=== PATIENT | male | born 1955 | race Caucasian/White ===

== ENCOUNTER 2020-10-12 09:27 | Emergency (ER) | payer OTHER, SELFPAY ==
[2020-10-12 09:45] VITALS: BP 126/91; PULSE 68; RESP 16; TEMP 36.2; O2SAT 99; BMI 21.9
--- NOTE | 2020-10-12 10:06 | XR_ITS ---
EXAMINATION: XR RIBS, RIGHT CLINICAL INFORMATION: Right posterior rib cage pain. No known trauma. COMPARISON: Chest radiographs 05/21/2018. TECHNIQUE: Frontal view chest is performed along with 3 views of the right ribs for a total of 4 views. FINDINGS: There is no right rib fracture or rib destructive process. There are mild degenerative changes again seen acromioclavicular joint with mild inferior spurring. Dextrocurvature midthoracic spine is again noted with multilevel degenerative changes thoracic spine. The lungs are clear. There is no pneumothorax or pleural reaction. No airspace consolidation, groundglass opacity, or effusion. There is small chronic circumscribed subpleural granuloma mid left zone similar to prior radiographs 2018. There are bilateral nipple shadows on the frontal view. XR/XR ribs RT min 3V w CXR1V IMPRESSION: 1. No rib fracture or rib destructive process. 2. Multilevel degenerative changes thoracic spine. Degenerative changes right AC joint. 3. Lungs clear. Incidental small chronic granuloma left mid zone. 4. No pneumothorax or pleural reaction.
--- NOTE | 2020-10-12 10:24 | ED_ITS ---
HPI - Back Pain/Injury General Chief Complaint: Back Pain/Injury Stated Complaint: back pain Time Seen by Provider: 10/12/20 10:02 Source: patient Mode of arrival: ambulatory Limitations: no limitations History of Present Illness HPI Narrative: 64yoM c PMHx of degenerative joint disease, COPD and depression presenting to the ED with complaints of upper to mid right-sided back pain for the past week. Denies any injuries. Denies any additional complaints or concerns at this time. Related Data Previous Rx's Medication Instructions Recorded cyclobenzaprine 10 mg PO TID PRN #10 tab 10/12/20 naproxen 500 mg PO BID PRN #10 tab 10/12/20 oxycodone-acetaminophen [Percocet] 1 tab PO Q6H PRN #10 tab 10/12/20 Allergies Allergy/AdvReac Type Severity Reaction Status Date / Time No Known Allergies Allergy Unverified 08/11/20 15:03 Review of Systems Review of Systems: Constitutional : No trauma, No Weight loss, No Fever, No Chills, ENT/Mouth : No Hearing loss, No Ear Pain, No Nasal Congestion, No Sinus Pain, No Hoarseness, No sore throat, No Rhinorrhea, No Swallowing Difficulty Cardiovascular : No Chest Pain, No SOB Respiratory : No Cough, No Dyspnea Gastrointestinal : No Nausea, No Vomiting, No Diarrhea, No abdominal Pain, No Hematochezia, No Melena Genitourinary : No Dysuria, No Urinary Frequency, No Hematuria, No Urinary or Bowel Incontinence/retention Musculoskeletal : + Back pain, No neck pain, No joint stiffness, No joint swelling Skin : No Skin Lesions, No rash or signs of infection Neuro : No Weakness, No radiation, No Numbness, No Paresthesias, No headache, no loss of bowel or bladder incontinence, no saddle anesthesia Denies history of IV drug usage. Yes all other systems are reviewed and are negative PMFSH Past Medical History Attestation statement: The following information was validated with the patient. Medical History COPD (chronic obstructive pulmonary disease) Surgical History H/O left knee surgery S/P rotator cuff repair Status post left rotator cuff repair Social History Social History Advance Directives: No Advance Directives Information Provided: Yes Physical Exam Vital Signs: Vital Signs: Last Vital Signs Temp 97.2 F 10/12/20 09:45 Pulse 68 10/12/20 09:45 Resp 16 10/12/20 09:45 BP 126/91 H 10/12/20 09:45 Pulse Ox 99 10/12/20 09:45 Body Mass Index 21.9 vital signs have been reviewed as normal and appeared to be correct. Blood pressure normal. Heart rate normal. Respiration rate normal. Temperature normal. Oxygen saturation normal. Appearance: Alert. Oriented X3. No acute distress. Head: Normal external exam. Normocephalic. Atraumatic. Eyes: PERRLA. EOMI. Conjunctiva and sclera normal. Eyelids normal. ENT: EAC normal. TM's Normal. Pharynx normal. Uvula midline. Moist mucous membranes. Neck: Normal inspection. Neck supple. FROM. No adenopathy. Thyroid Normal. No meningeal signs. No neck mass noted. CVS: Normal heart rate and rhythm. Heart sound normal. No murmurs noted. Pulses normal throughout. Respiratory: No respiratory distress. Painless inspiration. Breath sounds normal. No wheezes/rales/rhonchi noted. Chest TTP of right posterior upper-mid rib cage. No accessory muscle usage noted or decreased air movement noted. No rashes/ lesion/induration/fluctuance or signs of infection noted. No crepitus noted. Back: No CVA tenderness. Full range of motion noted. No obvious deformities, or edema. No mid spinal or paraspinous musculature tenderness noted. Full ROM in back and lower extremities. Straight leg raise test negative on right; Straight leg raise test negative on left; Reflexes normal ankle and knee bilaterally; EHL motor strength normal bilaterally Skin: Skin warm and dry. Normal skin color. Normal skin turgor. No rashes/lesions/lacerations noted. Extremities: Extremities exhibit normal range of motion. Extremities nontender. Neuro: Oriented X 3. No motor deficit. No sensory deficit. Reflexes normal. Course Course Course Narrative: 10:10am - 64yoM c PMHx of degenerative joint disease, COPD and depression presenting to the ED with complaints of upper to mid right-sided back pain for the past week. - Will obtain x-ray of right ribcage and PA chest and re-evaluate. MDM - Back Pain/Injury Medical Records Attestation: I reviewed the patient's medical records. Imaging Data right ribs and pa chest: Attestation: I personally reviewed and interpreted this imaging study as follows: Radiologist's impression: FINDINGS: There is no right rib fracture or rib destructive process. There are mild degenerative changes again seen acromioclavicular joint with mild inferior spurring. Dextrocurvature midthoracic spine is again noted with multilevel degenerative changes thoracic spine. The lungs are clear. There is no pneumothorax or pleural reaction. No airspace consolidation, groundglass opacity, or effusion. There is small chronic circumscribed subpleural granuloma mid left zone similar to prior radiographs 2018. There are bilateral nipple shadows on the frontal view. XR/XR ribs RT min 3V w CXR1V IMPRESSION: 1. No rib fracture or rib destructive process. 2. Multilevel degenerative changes thoracic spine. Degenerative changes right AC joint. 3. Lungs clear. Incidental small chronic granuloma left mid zone. 4. No pneumothorax or pleural reaction. Discharge Plan Discharge Clinical Impression: DDD (degenerative disc disease), thoracic, AC (acromioclavicular) joint arthritis, Bone spur of acromioclavicular joint, Lung granuloma Patient Disposition: Home, Self-Care Instructions: Degenerative Disc Disease (ED) Prescriptions: New naproxen 500 mg tablet 500 mg PO BID PRN (Reason: pain) Qty: 10 RF: 0 oxycodone-acetaminophen [Percocet] 5-325 mg tablet 1 tab PO Q6H PRN (Reason: pain) Qty: 10 RF: 0 cyclobenzaprine 10 mg tablet 10 mg PO TID PRN (Reason: muscle spasm) Qty: 10 RF: 0 Referrals: Arben Giordano MD [Primary Care Provider] - 2 days Print Language: [place]
== END 2020-10-12 11:15 | disposition home or self-care (01) ==
PROVIDERS: Emergency Provider Emergency Medicine; PCP Internal Medicine
DX: M51.34 Other intervertebral disc degeneration, thoracic region (principal); J44.9 Chronic obstructive pulmonary disease, unspecified; R07.81 Pleurodynia; M54.5 Low back pain; F33.1 Major depressive disorder, recurrent, moderate; Z79.899 Other long term (current) drug therapy
CPT/HCPCS: 71101; 99283

== ENCOUNTER 2021-11-12 05:01 | Emergency (ER) | payer OTHER, SELFPAY ==
--- NOTE | ~2021-11-12 | CT_ITS ---
EXAMINATION: CT CERVICAL SPINE WITHOUT CONTRAST CLINICAL INFORMATION: Intermittent right arm weakness and numbness.. COMPARISON: None TECHNIQUE: 3 mm thin axial and reformatted 2 mm thin sagittal coronal images of cervical spine were obtained without contrast. This CT examination was performed using dose optimization techniques as appropriate, variously including the following: *Automated exposure control *Adjustment of mA and/or kV according to patient size (this includes techniques or standardized protocols for targeted exams where dose is matched to indication/reason for exam; i.e. extremities or head) *Use of iterative reconstruction technique DLP: 417 mGy-cm FINDINGS: There is normal cervical lordosis. The vertebral heights, alignment and disc heights are normal. The craniovertebral junction and C1-C2 alignment is normal. At C2-C3 disc levels there is mild left uncovertebral hypertrophic changes narrowing the left neural foramina. There is moderate left facet joint hypertrophy. Mild AP canal narrowing is noted. At C3-C4 disc level is mild posterior spondylosis with mild spinal spinal canal stenosis. There is moderate left facet joint hypertrophy. There is bilateral moderate narrowing of neural foramina. At C4-C5 disc level the spinal canal is capacious. The neural foramina are patent bilaterally. There is 7 mm sclerotic density right C5 transverse process likely a bone island. At C5-C6 disc level there is moderate left neural foraminal narrowing. The right neural foramina is widely patent. There is no visible acute fracture, dislocation or lytic process. There is moderate right facet joint hypertrophy. Mild narrowing of left neural foramina is seen from uncovertebral hypertrophic change. At C6-C7 disc level there is posterior spondylosis/bulge complex with mild AP canal stenosis. There is bilateral moderate narrowing of neural foramina from uncovertebral hypertrophic changes. The C7-T1 disc level appears unremarkable. No lytic or sclerotic process seen. There is moderate ventral spondylosis throughout cervical spine from C3-C4 through T1-T2 disc level. The prevertebral and paravertebral soft tissues are normal. The airway is widely patent. No abnormal neck mass or lymphadenopathy seen. CT/CT cervical spine wo con IMPRESSION: Multilevel degenerative spinal canal stenosis secondary to posterior spondylosis at C3-C4 and C6-C7 disc levels. Uncovertebral hypertrophic changes with narrowing the neural foramina at several disc levels as per above. No visible acute fracture or dislocation. There is moderate ventral spondylosis throughout cervical spine.
[2021-11-12 05:04] VITALS: BP 117/78; PULSE 62; RESP 20; TEMP 35.9; O2SAT 95; BMI 21.9
[2021-11-12 08:55] VITALS: BP 124/83; PULSE 62; RESP 19; TEMP 36.6; O2SAT 97; BMI 21.9
--- NOTE | 2021-11-12 09:25 | ED_ITS ---
HPI - General Adult General Chief complaint: General Medical Stated complaint: Arm numbness Time Seen by Provider: 11/12/21 09:09 Source: patient Mode of arrival: ambulatory History of Present Illness HPI narrative: 65-year-old male with past medical history of COPD, cigarette smoker, presenting to the ED complaining of intermittent right arm numbness/tingling x3 weeks. Admits symptoms positional worse when lying flat on back/on side, slightly improves when hold arm in flexed position. Reports mildly painful. Denies weakness, headache, lightheadedness/dizziness, trauma/fall, CP/SOB, neck/back pain. Denies taking anticoagulation Onset (ago): week(s) Related Data Previous Rx's Medication Instructions Recorded cyclobenzaprine 10 mg tablet 10 mg PO TID PRN #10 tab 10/12/20 naproxen 500 mg tablet 500 mg PO BID PRN #10 tab 10/12/20 oxycodone-acetaminophen 5 mg-325 1 tab PO Q6H PRN #10 tab 10/12/20 mg tablet (Percocet) acetaminophen 500 mg tablet 500 mg PO Q6H PRN #20 tab 11/12/21 (Tylenol Extra Strength) cyclobenzaprine 5 mg tablet 5 mg PO Q8H PRN 5 Days #14 tab 11/12/21 lidocaine 5 % topical patch 1 patch TOPICAL DAILY PRN #30 ea 11/12/21 (Lidoderm) MDD remove after 12 hours naproxen 500 mg tablet 500 mg PO BID PRN 10 Days #20 tab 11/12/21 Allergies Allergy/AdvReac Type Severity Reaction Status Date / Time No Known Allergies Allergy Unverified 11/12/21 05:11 Review of Systems Review of Systems: Constitutional: No Fever, No Chills ENT/Mouth: No Ear Pain, No Nasal Congestion, No sore throat, No Rhinorrhea, No Swallowing Difficulty Cardiovascular: No Chest Pain, No SOB Respiratory: No Cough, No Sputum, No Wheezing Gastrointestinal: No Nausea, No Vomiting, No Diarrhea, No Constipation, No Abdominal pain Genitourinary: No Dysuria, No Urinary Frequency, No Hematuria, No Urinary Incon tinence Musculoskeletal: No neck/back pain, No Myalgias, No Joint Swelling Skin: No Skin Lesions, No rash Neuro: No Weakness, + Numbness, + Paresthesias, no headache, no dizziness/lightheadedness Yes all other systems are reviewed and are negative Neurologic: Denies Abnormal speech present and Denies Sensory deficit (Neuro) [facility] Past Medical History Attestation statement: The following information was validated with the patient. Medical History COPD (chronic obstructive pulmonary disease) Surgical History H/O left knee surgery S/P rotator cuff repair Status post left rotator cuff repair Social History Social History Advance Directives: No Physical Exam Vital Signs: Vital Signs: Last Vital Signs Temp 98 F 11/12/21 08:55 Pulse 62 11/12/21 08:55 Resp 19 11/12/21 08:55 BP 124/83 11/12/21 08:55 Pulse Ox 97 11/12/21 08:55 BMI result Body Mass Index 21.9 Const: General: cooperative, healthy appearing, no acute distress, well developed, alert, awake and Physically active Orientation/consciousness: patient oriented x3 Limitations: no limitations HENMT: Head: Yes normal to inspection and Yes atraumatic Ears: hearing grossly normal bilaterally General nose exam: Normal external nose present Face and sinus: Yes normal facial exam Mouth: Normal oral and palatal mucosa present Throat: Yes posterior oropharynx normal Eyes: General: appearance normal, both eyes and all related structures Pupils: Equal, round and reactive pupils present EOM: EOMs intact bilaterally Neck: Other: No midline cervical spinous tenderness/step-off or deformity. No paraspinal tenderness. Neck: Yes normal visual inspection, Yes no meningeal signs, Yes trachea midline, Yes supple, No anterior neck swelling and No torticollis Lymphatic: no lymphadenopathy noted Resp: Effort & Inspection: normal respiratory effort and no respiratory distress Cardio: Rate: regular rate Heart sounds: S1 normal heart sound present and S2 normal heart sound present Peripheral pulses: radial pulses present and ulnar radial pulses present Skin: Rashes: no rashes Wounds: no wounds Neuro: General: patient oriented x3, gait normal, tone normal, moves all extremities, no meningeal signs, no focal motor deficits and CN's II-XI intact bilaterally Cranial nerves: Yes CN's II-XII intact bilaterally, Yes Equal, round and reactive pupils present and Yes Bilaterally intact EOM present Cognition (Neuro): normal cognition Speech: No Abnormal speech present Gait exam (Neuro): Normal gait present Motor exam (neuro): 5/5 motor strength present throughout and no tremor noted Sensory Exam: No Sensory deficit (Neuro) Extrem: General: Yes normal to inspection Course Course Course Narrative: CT cervical spine wo con IMPRESSION: Multilevel degenerative spinal canal stenosis secondary to posterior spondylosis at C3-C4 and C6-C7 disc levels. ? Uncovertebral hypertrophic changes with narrowing the neural foramina at several disc levels as per above. ? No visible acute fracture or dislocation. There is moderate ventral spondylosis throughout cervical spine. >> results discussed with patient treating worrisome signs and symptoms and strict return precautions and need to follow-up with Neurosurgery Medical Decision Making MDM Narrative Medical decision making narrative: 65-year-old male with past medical history of COPD, cigarette smoker, presenting to the ED complaining of intermittent right arm numbness/tingling x3 weeks. On exam vital signs stable, NAD/nontoxic, physical exam as above, no midline cervical spinous tenderness, no focal neuro deficits, no appreciable weakness, upper extremity pulses equal and intact, sensation intact to light touch. Concern for compression latrice ropathy/paresthesias vs inflammation. Lower concern for demyelinating process or vasculitic neuropathy as symptoms are intermittent. Plan: Cervical spine CT Medical Records Medical records reviewed: Yes I reviewed the patient's medical records. Lab Data Lab results reviewed: Yes I reviewed the patient's lab results. Discharge Plan Discharge Clinical Impression: Cervical stenosis of spinal canal Patient Disposition: Home, Self-Care Instructions: Cervical Spinal Stenosis (ED) Additional Instructions: Your CT shows multilevel degenerative spinal canal stenosis. You need to follow-up with a neurosurgeon, call to make an appointment Naproxen as anti-inflammatory medication, take with food. Flexeril is a muscle relaxer, take at night as it makes you drowsy, do not drive or drink alcohol whi le taking it In addition you may take Tylenol Rest If symptoms persist or worsen, you develop weakness, chest pain, shortness breath, headaches please return to the ED Prescriptions: New acetaminophen [Tylenol Extra Strength] 500 mg tablet 500 mg PO Q6H PRN (Reason: pain or fever) Qty: 20 RF: 0 lidocaine [Lidoderm] 5 % adhesive patch,medicated 1 patch topical DAILY MDD remove after 12 hours PRN (Reason: pain) Qty: 30 RF: 0 naproxen 500 mg tablet 500 mg PO BID PRN (Reason: pain) 10 Days Qty: 20 RF: 0 cyclobenzaprine 5 mg tablet 5 mg PO Q8H PRN (Reason: pain (scale score 7-10)) 5 Days Qty: 14 RF: 0 No Action naproxen 500 mg tablet 500 mg PO BID PRN (Reason: pain) Qty: 10 RF: 0 oxycodone-acetaminophen [Percocet] 5-325 mg tablet 1 tab PO Q6H PRN (Reason: pain) Qty: 10 RF: 0 cyclobenzaprine 10 mg tablet 10 mg PO TID PRN (Reason: muscle spasm) Qty: 10 RF: 0 Referrals: Jagruti Hernandez MD [Physician] - 5 days
== END 2021-11-12 11:28 | disposition home or self-care (01) ==
PROVIDERS: Emergency Provider Emergency Medicine; PCP Internal Medicine
DX: M48.02 Spinal stenosis, cervical region (principal); R20.0 Anesthesia of skin; F17.200 Nicotine dependence, unspecified, uncomplicated
CPT/HCPCS: 72125; 99283; 99284

== ENCOUNTER 2023-01-09 13:32 | Emergency (ER) | payer MEDICARE, MEDICAID, SELFPAY ==
--- NOTE | ~2023-01-09 | XR_ITS ---
EXAMINATION: XR SHOULDER, RIGHT CLINICAL INFORMATION: Pain with decreased range of motion COMPARISON: None TECHNIQUE: Three views of the right shoulder. FINDINGS: Some minimal degenerative changes have developed since 2014 with some mild sclerosis at the inferior glenoid. Some minimal osteophytes are present. The joint space does not appear narrowed. There is been progression of calcification supraspinatus tendon with a small amount currently present. No fractures or subluxations. XR/XR shoulder RT min 2V IMPRESSION: Interval development of mild degenerative changes in the right shoulder with progression of supraspinatus calcific tendinitis/tendinosis.
--- NOTE | 2023-01-09 13:55 | ED.EXTPRO ---
HPI - Extremity Problem General Chief complaint: Extremity Injury, Upper <Ni Menchaca CNP - Last Filed: 01/09/23 14:01> Stated complaint: r shoulder pain <Ni Menchaca CNP - Last Filed: 01/09/23 14:01> Time Seen by Provider: 01/09/23 14:11 <Ni Menchaca CNP - Last Filed: 01/09/23 14:01> Related Data Home medications: Previous Rx's Medication Instructions Recorded cyclobenzaprine 10 mg tablet 10 mg PO TID PRN muscle spasm #10 10/12/20 tabs naproxen 500 mg tablet 500 mg PO BID PRN pain #10 tabs 10/12/20 oxycodone-acetaminophen 5 mg-325 1 tab PO Q6H PRN pain #10 tabs 10/12/20 mg tablet (Percocet) acetaminophen 500 mg tablet 500 mg PO Q6H PRN pain or fever 11/12/21 (Tylenol Extra Strength) #20 tabs cyclobenzaprine 5 mg tablet 5 mg PO Q8H PRN pain (scale score 11/12/21 7-10) 5 days #14 tabs lidocaine 5 % topical patch 1 patch topical DAILY PRN pain #30 11/12/21 (Lidoderm) ea naproxen 500 mg tablet 500 mg PO BID PRN pain 10 days #20 11/12/21 tabs acetaminophen 500 mg capsule 1,000 mg PO Q8H PRN pain #30 caps 01/09/23 naproxen 500 mg tablet (Naprosyn) 500 mg PO BID PRN pain #20 tabs 01/09/23 oxycodone 5 mg tablet 5 mg PO Q6H PRN pain #20 tabs 01/09/23 <Ni Menchaca CNP - Last Filed: 01/09/23 14:01> Allergies/Adverse reactions: Allergies Allergy/AdvReac Type Severity Reaction Status Date / Time No Known Allergies Allergy Unverified 11/12/21 05:11 <Ni Menchaca CNP - Last Filed: 01/09/23 14:01> [facility] Past Medical History Medical History: Medical History COPD (chronic obstructive pulmonary disease) <Ni Menchaca MEDICAL REIMBURSEMENT SPECIALIST - Last Filed: 01/09/23 14:01> Surgical History: Surgical History H/O left knee surgery S/P rotator cuff repair Status post left rotator cuff repair <Ni MenchacaELLIE - Last Filed: 01/09/23 14:01> Social History Social History: Social History Advance Directives: No Advance Directives Information Provided: Yes <Ni MenchacaELLIE - Last Filed: 01/09/23 14:01> Physical Exam Vital Signs: Vital Signs: Last Vital Signs Temp 97.6 F 01/09/23 13:56 Pulse 97 01/09/23 13:56 Resp 18 01/09/23 13:56 BP 117/84 01/09/23 13:56 Pulse Ox 95 01/09/23 13:56 O2 Del Method 01/09/23 13:56 BMI result Body Mass Index 23.3 <iN MenchacaELLIE - Last Filed: 01/09/23 14:01> Vital Signs: Last Vital Signs Temp 97.6 F 01/09/23 13:56 Pulse 97 01/09/23 13:56 Resp 18 01/09/23 13:56 BP 117/84 01/09/23 13:56 Pulse Ox 95 01/09/23 13:56 O2 Del Method 01/09/23 13:56 BMI result Body Mass Index 23.3 <JAMILA Antoine - Last Filed: 01/09/23 15:29> Course Course Course Narrative: This is an RME: Additional HPI, ROS, PE not included below will be deferred to primary provider. Patient is a 67-year-old male who presents emergency department with right shoulder pain. Denies any prior history of right shoulder pain. Onset of pain was 2 days ago, described as severe, diffuse throughout the shoulder, states he is unable to lift his right arm. Denies any fall, precipitating injury. Denies numbness or tingling. Denies any weakness to the arm/hand. Advised associated neck pain with this. Took Tylenol at 0700 without any significant improvement. PE: Decreased AROM, limited external rotation, abduction. Neurovascularly intact distally. Concern for degenerative joint disease, possible rotator cuff injury Plan: Will obtain XR imaging. placed back in waiting room pending bed availability <Ni Menchaca CNP - Last Filed: 01/09/23 14:01> This is an RME: Additional HPI, ROS, PE not included below will be deferred to primary provider. Patient is a 67-year-old male who presents emergency department with right shoulder pain. Denies any prior history of right shoulder pain. Onset of pain was 2 days ago, described as severe, diffuse throughout the shoulder, states he is unable to lift his right arm. Denies any fall, precipitating injury. Denies numbness or tingling. Denies any weakness to the arm/hand. Advised associated neck pain with this. Took Tylenol at 0700 without any significant improvement. PE: Decreased AROM, limited external rotation, abduction. Neurovascularly intact distally. Concern for degenerative joint disease, possible rotator cuff injury Plan: Will obtain XR imaging. placed back in waiting room pending bed availability Patient with atraumatic right shoulder pain head and x-ray showing calcific tendinitis of supraspinatus as well as degenerative changes in the right shoulder There is no pain when the arm is held in a comfortable position of internal rotation, but there is pain only with when he moves from that position, there is no chest pain no shortness of breath Patient had pain with movement but he did have limited range of motion in the shoulder, it was not red it was not warm it was not swollen, septic arthritis very unlikely and patient is given analgesics and recommended to follow with orthopedist <JAMILA Antoine - Last Filed: 01/09/23 15:29> Discharge Plan Discharge Clinical Impression: Calcific tendinitis of right shoulder, Arthralgia of right shoulder region <Ni Menchaca CNP - Last Filed: 01/09/23 14:01> Patient Disposition: Home, Self-Care <Ni Menchaca CNP - Last Filed: 01/09/23 14:01> Additional Instructions: X-ray showed tendinitis and arthritis in the joint X-ray does not clearly show muscles and tendons and ligaments so if pain continues you may need MRI of the right shoulder Follow with orthopedist for further evaluation Return any time any worse condition or any concerns <Ni Menchaca CNP - Last Filed: 01/09/23 14:01> Prescriptions: New acetaminophen 500 mg capsule 1,000 mg PO Q8H PRN (Reason: pain) Qty: 30 0RF naproxen [Naprosyn] 500 mg tablet 500 mg PO BID PRN (Reason: pain) Qty: 20 0RF oxycodone 5 mg tablet 5 mg PO Q6H PRN (Reason: pain) Qty: 20 0RF Rx Instructions: Partial Fill upon patient request. No Action naproxen 500 mg tablet 500 mg PO BID PRN (Reason: pain) Qty: 10 0RF oxycodone-acetaminophen [Percocet] 5-325 mg tablet 1 tab PO Q6H PRN (Reason: pain) Qty: 10 0RF cyclobenzaprine 10 mg tablet 10 mg PO TID PRN (Reason: muscle spasm) Qty: 10 0RF acetaminophen [Tylenol Extra Strength] 500 mg tablet 500 mg PO Q6H PRN (Reason: pain or fever) Qty: 20 0RF lidocaine [Lidoderm] 5 % adhesive patch,medicated 1 patch topical DAILY MDD remove after 12 hours PRN (Reason: pain) Qty: 30 0RF Rx Instructions: leave on most painful area for up to 12 hrs naproxen 500 mg tablet 500 mg PO BID PRN (Reason: pain) 10 Days Qty: 20 0RF cyclobenzaprine 5 mg tablet 5 mg PO Q8H PRN (Reason: pain (scale score 7-10)) 5 Days Qty: 14 0RF <Ni Menchaca CNP - Last Filed: 01/09/23 14:01> Referrals: Manjit hPam MD [Physician] - (Right shoulder tendinitis and arthralgia) <Ni Menchaca CNP - Last Filed: 01/09/23 14:01>
[2023-01-09 13:56] VITALS: BP 117/84; PULSE 97; RESP 18; TEMP 36.4; O2SAT 95; BMI 23.3
== END 2023-01-09 16:28 | disposition home or self-care (01) ==
PROVIDERS: Emergency Provider Student in an Organized Health Care Education/Training Program; PCP Internal Medicine
DX: M75.31 Calcific tendinitis of right shoulder (principal); M25.511 Pain in right shoulder
CPT/HCPCS: 73030; 99282; 99283

== ENCOUNTER → 2023-02-15 08:44 | Outpatient (BNVA) | payer OTHER, MEDICAID, SELFPAY | PROVIDERS: PCP Internal Medicine; Visit Provider Physician Assistant | DX: M75.31 Calcific tendinitis of right shoulder (principal) | CPT/HCPCS: 99202 ==

== ENCOUNTER 2023-03-13 18:25 | Emergency (ER) | payer OTHER, SELFPAY ==
--- NOTE | ~2023-03-13 | XR_ITS ---
EXAMINATION: XR CHEST CLINICAL INFORMATION: Shortness of breath COMPARISON: 10/12/2020 TECHNIQUE: Frontal view of the chest was obtained. FINDINGS: Lungs are hypoexpanded. Otherwise, no significant abnormality is noted involving the heart, lungs, mediastinum, bony thorax or soft tissues. Again seen is a tiny left lung calcified granuloma laterally. XR/XR chest 1V IMPRESSION: No acute intrathoracic disease.
--- NOTE | 2023-03-13 18:26 | ED.SOB ---
HPI - SOB/Dyspnea General Chief Complaint: Dyspnea Stated Complaint: diff breathing Time Seen by Provider: 03/13/23 18:26 Source: patient Mode of arrival: EMS Limitations: no limitations History of Present Illness HPI Narrative: Patient history of COPD was having increased shortness of breath got worse when came to the car all of sudden started having shortness of breath no chest pain no fever no chills no cough Related Data Previous Rx's Medication Instructions Recorded cyclobenzaprine 10 mg tablet 10 mg PO TID PRN muscle spasm #10 10/12/20 tabs naproxen 500 mg tablet 500 mg PO BID PRN pain #10 tabs 10/12/20 oxycodone-acetaminophen 5 mg-325 1 tab PO Q6H PRN pain #10 tabs 10/12/20 mg tablet (Percocet) acetaminophen 500 mg tablet 500 mg PO Q6H PRN pain or fever 11/12/21 (Tylenol Extra Strength) #20 tabs cyclobenzaprine 5 mg tablet 5 mg PO Q8H PRN pain (scale score 11/12/21 7-10) 5 days #14 tabs lidocaine 5 % topical patch 1 patch topical DAILY PRN pain #30 11/12/21 (Lidoderm) ea naproxen 500 mg tablet 500 mg PO BID PRN pain 10 days #20 11/12/21 tabs acetaminophen 500 mg capsule 1,000 mg PO Q8H PRN pain #30 caps 01/09/23 naproxen 500 mg tablet (Naprosyn) 500 mg PO BID PRN pain #20 tabs 01/09/23 oxycodone 5 mg tablet 5 mg PO Q6H PRN pain #20 tabs 01/09/23 albuterol sulfate 90 mcg/actuation 2 puff inhalation Q4-6H PRN 03/13/23 aerosol inhaler (ProAir HFA) bronchospasm #8.5 grams prednisone 20 mg tablet 40 mg PO DAILY #10 tabs 03/13/23 Allergies Allergy/AdvReac Type Severity Reaction Status Date / Time No Known Allergies Allergy Verified 02/15/23 08:52 Review of Systems Review of Systems: Yes all other systems are reviewed and are negative PMFSH Past Medical History Medical History COPD (chronic obstructive pulmonary disease) Surgical History H/O left knee surgery S/P rotator cuff repair Status post left rotator cuff repair Social History Social History Alcohol intake: never Patient Tobacco Use Status: Never used Tobacco Smoked in Last 30 Days: No Use of substances other than those prescribed or required for medical reasons: No Advance Directives: No Advance Directives Information Provided: No Current occupational status: retired Current occupation: right hand dominant Physical Exam Vital Signs: Vital Signs: Last Vital Signs Temp 99.5 F 03/13/23 18:27 Pulse 108 H 03/13/23 20:54 Resp 20 03/13/23 20:54 BP 122/71 03/13/23 20:54 Pulse Ox 93 03/13/23 20:54 O2 Del Method Room Air 03/13/23 20:54 BMI result Body Mass Index 23.5 Appearance: Alert. Oriented X3. No acute distress. Eyes: PERRLA, No Nystagmus ENT: Pharynx normal. Oral Mucosa moist Neck: Normal inspection. Neck supple. CVS: Normal heart rate and rhythm. Pulses normal. Respiratory: No respiratory distress. Equal air entry bilateral, bilateral wheezing with occasional crackles equal air entry Abdomen: Soft and nontender. Bowel sounds are present, no mass palpable, no CVA tenderness Skin: Skin warm and dry. Normal skin color. Normal skin turgor. Extremities: No lower extremity edema. No calf tenderness Neuro: Oriented X 3. No motor deficit. Medications Administered Discontinued Medications Generic Name Dose Route Start Last Admin Trade Name Freq PRN Reason Stop Dose Admin Albuterol Sulfate 7.5 mg 03/13/23 18:35 03/13/23 18:43 Albuterol Sulfate (0.083%) 2.5 Mg/3 Ml Vial.Neb INHALE 03/13/23 18:36 7.5 mg ONCE ONE Administration Medical Decision Making Lab Data 03/13/23 19:00 03/13/23 19:00 Labs: Lab Results 03/13/23 03/13/23 03/13/23 Range/Units 18:50 18:50 19:00 WBC 13.6 H (4.8-10.8) X10*3/uL RBC 5.09 (4.60-5.80) X10*6/uL Hgb 14.5 (14.0-18.0) g/dl Hct 43.6 (42.0-52.0) % MCV 85.7 (80.0-98.0) fL MCH 28.5 (27.0-33.0) pg MCHC 33.3 (31.0-36.0) g/dl RDW 14.4 (11.0-16.0) % Plt Count 250 (160-400) X10*3/uL MPV 8.8 L (9.4-12.4) fL Immature Gran % (Auto) 0.3 (0.0-0.4) % Neut % (Auto) 71.7 (45-73) % Lymph % (Auto) 13.8 L (20-40) % [place] % (Auto) 4.3 (2-11) % Eos % (Auto) 9.4 H (0-4) % Baso % (Auto) 0.5 (0-2) % Lymph # (Auto) 1.9 (1.2-4.9) X10*3/uL [place] # (Auto) 0.6 (0.1-1.2) X10*3/uL Eos # (Auto) 1.3 H (0.0-0.4) X10*3/uL Baso # (Auto) 0.1 (0.0-0.2) X10*3/uL Abs Immat Gran (auto) 0.04 H (0.00-0.03) X10*3/uL Absolute Neuts (auto) 9.7 H (2.0-8.3) x10*3/uL Absolute Nucleated RBC 0.000 (0.0-0.012) X10*3/uL Nucleated RBC % (auto) 0.0 (0.0-0.2) /100WBC PT (10.0-13.1) SEC INR (0.9-1.1) Sodium (135-145) mmol/L Potassium (3.3-5.1) mmol/L Chloride (96-108) mmol/L Carbon Dioxide (22-29) mmol/L Anion Gap (12-20) BUN (9-16) mg/dL Creatinine (0.5-1.4) mg/dL Estim Creat Clear Calc Estimated GFR Random Glucose (60-115) mg/dL Lactic Acid 1.4 (0.5-2.0) mmol/L Calcium (8.4-10.2) mg/dL Total Bilirubin (0.0-1.0) mg/dL AST (5-37) U/L ALT (0-40) U/L Alkaline Phosphatase (39-117) U/L Troponin I High Sens < 2.7 (<3.5-35.0) ng/L Total Protein (6.5-8.0) g/dL Albumin (3.5-5.0) g/dL COVID-19 (AMILCAR) (Negative) COVID-19 Clin Com 03/13/23 03/13/23 03/13/23 Range/Units 19:00 19:00 19:01 WBC (4.8-10.8) X10*3/uL RBC (4.60-5.80) X10*6/uL Hgb (14.0-18.0) g/dl Hct (42.0-52.0) % MCV (80.0-98.0) fL MCH (27.0-33.0) pg MCHC (31.0-36.0) g/dl RDW (11.0-16.0) % Plt Count (160-400) X10*3/uL MPV (9.4-12.4) fL Immature Gran % (Auto) (0.0-0.4) % Neut % (Auto) (45-73) % Lymph % (Auto) (20-40) % [place] % (Auto) (2-11) % Eos % (Auto) (0-4) % Baso % (Auto) (0-2) % Lymph # (Auto) (1.2-4.9) X10*3/uL [place] # (Auto) (0.1-1.2) X10*3/uL Eos # (Auto) (0.0-0.4) X10*3/uL Baso # (Auto) (0.0-0.2) X10*3/uL Abs Immat Gran (auto) (0.00-0.03) X10*3/uL Absolute Neuts (auto) (2.0-8.3) x10*3/uL Absolute Nucleated RBC (0.0-0.012) X10*3/uL Nucleated RBC % (auto) (0.0-0.2) /100WBC PT 11.8 (10.0-13.1) SEC INR 1.0 (0.9-1.1) Sodium 143 (135-145) mmol/L Potassium 4.1 (3.3-5.1) mmol/L Chloride 109 H (96-108) mmol/L Carbon Dioxide 25 (22-29) mmol/L Anion Gap 13 (12-20) BUN 15 (9-16) mg/dL Creatinine 0.86 (0.5-1.4) mg/dL Estim Creat Clear Calc 78.9 Estimated GFR > 60 Random Glucose 109 (60-115) mg/dL Lactic Acid (0.5-2.0) mmol/L Calcium 9.7 (8.4-10.2) mg/dL Total Bilirubin 0.8 (0.0-1.0) mg/dL AST 23 (5-37) U/L ALT 22 (0-40) U/L Alkaline Phosphatase 68 (39-117) U/L Troponin I High Sens (<3.5-35.0) ng/L Total Protein 6.8 (6.5-8.0) g/dL Albumin 4.3 (3.5-5.0) g/dL COVID-19 (AMILCAR) Negative (Negative) COVID-19 Clin Com See Note Discharge Plan Discharge Clinical Impression: COPD (chronic obstructive pulmonary disease) Patient Disposition: Home, Self-Care Instructions: COPD (Chronic Obstructive Pulmonary Disease) (ED) Additional Instructions: Continue your inhalers Prednisone as prescribed Follow-up with the PCP if not better Prescriptions: New prednisone 20 mg tablet 40 mg PO DAILY Qty: 10 0RF albuterol sulfate [ProAir HFA] 90 mcg/actuation HFA aerosol inhaler 2 puff inhalation Q4-6H PRN (Reason: bronchospasm) Qty: 8.5 0RF No Action naproxen 500 mg tablet 500 mg PO BID PRN (Reason: pain) Qty: 10 0RF oxycodone-acetaminophen [Percocet] 5-325 mg tablet 1 tab PO Q6H PRN (Reason: pain) Qty: 10 0RF cyclobenzaprine 10 mg tablet 10 mg PO TID PRN (Reason: muscle spasm) Qty: 10 0RF acetaminophen [Tylenol Extra Strength] 500 mg tablet 500 mg PO Q6H PRN (Reason: pain or fever) Qty: 20 0RF lidocaine [Lidoderm] 5 % adhesive patch,medicated 1 patch topical DAILY MDD remove after 12 hours PRN (Reason: pain) Qty: 30 0RF Rx Instructions: leave on most painful area for up to 12 hrs naproxen 500 mg tablet 500 mg PO BID PRN (Reason: pain) 10 Days Qty: 20 0RF cyclobenzaprine 5 mg tablet 5 mg PO Q8H PRN (Reason: pain (scale score 7-10)) 5 Days Qty: 14 0RF acetaminophen 500 mg capsule 1,000 mg PO Q8H PRN (Reason: pain) Qty: 30 0RF naproxen [Naprosyn] 500 mg tablet 500 mg PO BID PRN (Reason: pain) Qty: 20 0RF oxycodone 5 mg tablet 5 mg PO Q6H PRN (Reason: pain) Qty: 20 0RF Rx Instructions: Partial Fill upon patient request.
[2023-03-13 18:27] VITALS: BP 153/99; BP 158/92; PULSE 102; PULSE 110; RESP 22; TEMP 37.5; O2SAT 93; O2SAT 98; BMI 23.5
--- NOTE | 2023-03-13 18:31 | ECG_ITS ---
Test Reason : sob Blood Pressure : / mmHG Vent. Rate : 108 BPM Atrial Rate : 108 BPM P-R Int : 158 ms QRS Dur : 130 ms QT Int : 354 ms P-R-T Axes : 069 085 057 degrees QTc Int : 474 ms Sinus tachycardia Right bundle branch block Abnormal ECG No previous ECGs available Referred By: Magno Richter Electronically Signed By:ASHLEY GLASS
[2023-03-13] MEDS: Albuterol Sulfate (0.083%) 2.5 MG/3 ML VIAL.NEB 7.5 MG INHALE (18:43)
[2023-03-13 18:44] VITALS: PULSE 105; RESP 28
[2023-03-13 19:03] LABS: MANUAL DIFF FLAG NO
[2023-03-13 19:07] LABS: Basophils Absolute Auto 0.1 X10*3/uL (0.0-0.2); Basophils Percent Auto 0.5 % (0-2); Eosinophils Absolute Auto 1.3 X10*3/uL (0.0-0.4); Eosinophils Percent Auto 9.4 % (0-4); Hematocrit 43.6 % (42.0-52.0); Hemoglobin 14.5 g/dl (14.0-18.0); Imm Gran Abs Auto 0.04 X10*3/uL (0.00-0.03); Imm Gran Pct Auto 0.3 % (0.0-0.4); Lymphocytes Absolute Auto 1.9 X10*3/uL (1.2-4.9); Lymphocytes Percent Auto 13.8 % (20-40); Mean Corpuscular HGB Conc 33.3 g/dl (31.0-36.0); Mean Corpuscular Hemoglobin 28.5 pg (27.0-33.0); Mean Corpuscular Volume 85.7 fL (80.0-98.0); Mean Platelet Volume 8.8 fL (9.4-12.4); Monocytes Absolute Auto 0.6 X10*3/uL (0.1-1.2); Monocytes Percent Auto 4.3 % (2-11); Neutrophils Absolute Auto 9.7 x10*3/uL (2.0-8.3); Neutrophils Percent Auto 71.7 % (45-73); Platelet Count 250 X10*3/uL (160-400); Red Blood Count 5.09 X10*6/uL (4.60-5.80); Red Cell Distribution Width 14.4 % (11.0-16.0); White Blood Count 13.6 X10*3/uL (4.8-10.8)
[2023-03-13 19:08] LABS: Lactic Acid 1.4 mmol/L (0.5-2.0)
[2023-03-13 19:10] LABS: Prothrombin Time 11.8 SEC (10.0-13.1)
[2023-03-13 19:19] LABS: Troponin-I High Sensitivity < 2.7 ng/L (<3.5-35.0)
[2023-03-13 19:20] LABS: Alanine Aminotransferase 22 U/L (0-40); Albumin Level 4.3 g/dL (3.5-5.0); Alkaline Phosphatase 68 U/L (39-117); Anion Gap 13 (12-20); Aspartate Amino Transferase 23 U/L (5-37); Bilirubin Total 0.8 mg/dL (0.0-1.0); Blood Urea Nitrogen 15 mg/dL (9-16); Calcium 9.7 mg/dL (8.4-10.2); Carbon Dioxide 25 mmol/L (22-29); Chloride 109 mmol/L (96-108); Creatinine Clr Calc Pharmacy 78.9; Estimated Glomerular Filt Rate > 60; Glucose Random 109 mg/dL (60-115); Potassium 4.1 mmol/L (3.3-5.1); Sodium 143 mmol/L (135-145); Total Protein 6.8 g/dL (6.5-8.0)
[2023-03-13 19:23] LABS: COVID-19 Test Negative (Negative); IDNOW Serial# 08D9AD1C
[2023-03-13 19:44] VITALS: BP 136/79; PULSE 118; RESP 18; O2SAT 92
[2023-03-13 20:54] VITALS: BP 122/71; PULSE 108; RESP 20; O2SAT 93
[2023-03-13 21:37] LABS: B Type Natriuretic Peptide < 10 pg/mL (<100)
== END 2023-03-13 21:20 | disposition home or self-care (01) ==
PROVIDERS: Emergency Provider Internal Medicine; PCP Internal Medicine
DX: J44.9 Chronic obstructive pulmonary disease, unspecified (principal); R06.02 Shortness of breath; R00.0 Tachycardia, unspecified; Z20.822 Contact with and (suspected) exposure to COVID-19; Z20.828 Contact with and (suspected) exposure to other viral communicable diseases; Z79.899 Other long term (current) drug therapy
CPT/HCPCS: 71045; 80053; 83605; 83880; 84484; 85025; 85610; 87040; 87635; 93005; 94640; 99284; 99285

== ENCOUNTER 2023-04-02 11:07 | Emergency (ER) | payer OTHER, SELFPAY ==
--- NOTE | ~2023-04-02 | CT_ITS ---
EXAMINATION: CT ANGIOGRAM OF THE CHEST WITH AND WITHOUT CONTRAST (CT PULMONARY ANGIOGRAM FOR PE) CLINICAL INFORMATION: Reason for Exam chest pain COMPARISON: Previous chest x-ray February 2023 TECHNIQUE: Prior to contrast administration, noncontrast localization images were obtained. Subsequently, multidetector volumetric imaging was performed from the thoracic inlet to below the diaphragms following the administration of 65 mL Omnipaque 350 intravenous contrast. No contrast reaction reported Sagittal, coronal, and MIP oblique sagittal reformatted images were obtained on the CT workstation, uploaded to PACS, and reviewed. This CT examination was performed using dose optimization techniques as appropriate, variously including the following: *Automated exposure control *Adjustment of mA and/or kV according to patient size (this includes techniques or standardized protocols for targeted exams where dose is matched to indication/reason for exam; i.e. extremities or head) *Use of iterative reconstruction technique Total exam dose-length product 234 mGy-cm FINDINGS: QUALITY OF STUDY/CONTRAST BOLUS: Satisfactory. PULMONARY ARTERIES: No pulmonary emboli. THORACIC AORTA: No aneurysm. LUNG: Emphysema. Spiculated nodule in the left upper lobe measuring 1.4 x 1.8 cm axial image 150 series 7. No surrounding increased groundglass attenuation.. 5 mm calcified left upper lobe nodule axial image 234 series 7.. 3 mm noncalcified left upper lobe nodule axial image 301 series 7. 3 mm calcified left upper lobe nodule axial image 247 series 7. 2 mm noncalcified left lower lobe nodule axial image 253 series 7. 2 mm calcified left lower lobe nodule axial image 282 series 7. PLEURA: No pleural effusion or pneumothorax. MEDIASTINUM: Normal heart size. No pericardial effusion. No enlarged hilar or mediastinal lymphadenopathy. No evidence of septal bowing or right heart strain. CORONARY ARTERY CALCIFICATION: None visualized on this study. CHEST WALL/AXILLA: No axillary or internal mammary lymphadenopathy. OSSEOUS STRUCTURES: No acute or suspicious osseous abnormality. Degenerative changes of the spine. UPPER ABDOMEN: Unremarkable. No reflux of contrast into the hepatic veins to suggest elevated right heart pressures. CT/CT angio chest PE protocol IMPRESSION: No evidence of pulmonary embolism. Emphysema. 1.4 x 1.8 cm slightly spiculated left upper lobe nodule. Infectious, inflammatory and neoplastic processes should be considered. Short-term follow-up chest CT appearance clinical suspicion of infection would be recommended. Otherwise PET/CT scan or tissue sampling should be considered. Small calcified and noncalcified left upper and left lower lobe nodules. VTE: negative
--- NOTE | ~2023-04-02 | US_ITS ---
EXAMINATION: US VENOUS ULTRASOUND WITH DOPPLER LOWER EXTREMITY, BILATERAL CLINICAL INFORMATION: Shortness of breath COMPARISON: None available. TECHNIQUE: Ultrasound of the deep veins is performed from the hip to the calf with compression sonography and color and pulse Doppler assessment. Spectral analysis with color-flow imaging is performed. FINDINGS: RIGHT: There is normal venous compression and respiratory variation and augmented flow. The visualized common femoral vein, superficial femoral vein, profunda femoral vein, popliteal vein, and the trifurcation region shows no evidence of deep venous thrombosis. There is no significant popliteal fossa cyst. LEFT: There is normal venous compression and respiratory variation and augmented flow. The visualized common femoral vein, superficial femoral vein, profunda femoral vein, popliteal vein, and the trifurcation region shows no evidence of deep venous thrombosis. There is no significant popliteal fossa cyst. US/US venous duplex LE BI IMPRESSION: No DVT demonstrated in the bilateral lower extremity.
--- NOTE | 2023-04-02 11:16 | ECG_ITS ---
Test Reason : CHEST PAIN Blood Pressure : / mmHG Vent. Rate : 070 BPM Atrial Rate : 070 BPM P-R Int : 164 ms QRS Dur : 128 ms QT Int : 406 ms P-R-T Axes : 065 081 050 degrees QTc Int : 438 ms Artifact in tracing Normal sinus rhythm Possible Left atrial enlargement Right bundle branch block Abnormal ECG When compared with ECG of 13-MAR-2023 18:34, Vent. rate has decreased BY 38 BPM Referred By: Generic ED Physician Electronically Signed By:ASHLEY GLASS
[2023-04-02 11:38] VITALS: PULSE 78; RESP 18; TEMP 36.6; O2SAT 97; BMI 23.2
--- NOTE | 2023-04-02 11:38 | ED.CHESTPAIN ---
HPI - Chest Pain General Chief Complaint: General Medical Stated Complaint: Chest pain/Diff breathing Time Seen by Provider: 04/02/23 17:46 Related Data Previous Rx's Medication Instructions Recorded cyclobenzaprine 10 mg tablet 10 mg PO TID PRN muscle spasm #10 10/12/20 tabs naproxen 500 mg tablet 500 mg PO BID PRN pain #10 tabs 10/12/20 oxycodone-acetaminophen 5 mg-325 1 tab PO Q6H PRN pain #10 tabs 10/12/20 mg tablet (Percocet) acetaminophen 500 mg tablet 500 mg PO Q6H PRN pain or fever 11/12/21 (Tylenol Extra Strength) #20 tabs cyclobenzaprine 5 mg tablet 5 mg PO Q8H PRN pain (scale score 11/12/21 7-10) 5 days #14 tabs lidocaine 5 % topical patch 1 patch topical DAILY PRN pain #30 11/12/21 (Lidoderm) ea naproxen 500 mg tablet 500 mg PO BID PRN pain 10 days #20 11/12/21 tabs acetaminophen 500 mg capsule 1,000 mg PO Q8H PRN pain #30 caps 01/09/23 naproxen 500 mg tablet (Naprosyn) 500 mg PO BID PRN pain #20 tabs 01/09/23 oxycodone 5 mg tablet 5 mg PO Q6H PRN pain #20 tabs 01/09/23 albuterol sulfate 90 mcg/actuation 2 puff inhalation Q4-6H PRN 03/13/23 aerosol inhaler (ProAir HFA) bronchospasm #8.5 grams prednisone 20 mg tablet 40 mg PO DAILY #10 tabs 03/13/23 amoxicillin 875 mg-potassium 1 tab PO BID #10 tabs 04/02/23 clavulanate 125 mg tablet azithromycin 250 mg tablet See Rx Instructions PO .COMPLEX #6 04/02/23 tabs prednisone 20 mg tablet 40 mg PO DAILY 5 days #10 tabs 04/02/23 Allergies Allergy/AdvReac Type Severity Reaction Status Date / Time No Known Allergies Allergy Verified 04/02/23 11:41 [facility] Past Medical History Medical History COPD (chronic obstructive pulmonary disease) Surgical History H/O left knee surgery S/P rotator cuff repair Status post left rotator cuff repair Social History Social History Alcohol intake: never Patient Tobacco Use Status: Never used Tobacco Advance Directives: No Advance Directives Information Provided: Yes Current occupational status: retired Current occupation: right hand dominant Physical Exam Vital Signs: Vital Signs: Last Vital Signs Temp 98.0 F 04/02/23 20:37 Pulse 83 04/02/23 20:37 Resp 22 H 04/02/23 20:37 BP 123/83 04/02/23 20:37 Pulse Ox 94 04/02/23 20:37 O2 Del Method Room Air 04/02/23 20:37 BMI result Body Mass Index 23.2 Course Course Course Narrative: RME: 67yo M w/PMHc COPD c/o congestion, rhinorrhea, worsening CP and SOB x weeks, admits pain worse with deep breathing. Finished course of antibiotics a few days ago Lungs with good air movement, mildly coarse, vital signs stable EKG, labs, CXR ordered Full HPI, ROS and PE to be performed by primary ED provider. Medications Administered Discontinued Medications Generic Name Dose Route Start Last Admin Trade Name Freq PRN Reason Stop Dose Admin Iohexol 100 ml 04/02/23 21:12 04/02/23 21:13 Iohexol 350 Mg/Ml 100 Ml Infus..Btl IV 04/02/23 21:13 65 ml ONCE ONE Administration Medical Decision Making Lab Data 04/02/23 12:20 04/02/23 12:20 Labs: Lab Results 04/02/23 04/02/23 04/02/23 Range/Units 12:18 12:18 12:20 WBC 9.5 (4.8-10.8) X10*3/uL RBC 5.09 (4.60-5.80) X10*6/uL Hgb 14.2 (14.0-18.0) g/dl Hct 44.7 (42.0-52.0) % MCV 87.8 (80.0-98.0) fL MCH 27.9 (27.0-33.0) pg MCHC 31.8 (31.0-36.0) g/dl RDW 15.4 (11.0-16.0) % Plt Count 251 (160-400) X10*3/uL MPV 9.3 L (9.4-12.4) fL Immature Gran % (Auto) 0.1 (0.0-0.4) % Neut % (Auto) 63.2 (45-73) % Lymph % (Auto) 16.8 L (20-40) % [place] % (Auto) 7.8 (2-11) % Eos % (Auto) 11.3 H (0-4) % Baso % (Auto) 0.8 (0-2) % Lymph # (Auto) 1.6 (1.2-4.9) X10*3/uL [place] # (Auto) 0.7 (0.1-1.2) X10*3/uL Eos # (Auto) 1.1 H (0.0-0.4) X10*3/uL Baso # (Auto) 0.1 (0.0-0.2) X10*3/uL Abs Immat Gran (auto) 0.01 (0.00-0.03) X10*3/uL Absolute Neuts (auto) 6.0 (2.0-8.3) x10*3/uL Absolute Nucleated RBC 0.000 (0.0-0.012) X10*3/uL Nucleated RBC % (auto) 0.0 (0.0-0.2) /100WBC PT (10.0-13.1) SEC INR (0.9-1.1) Sodium (135-145) mmol/L Potassium (3.3-5.1) mmol/L Chloride (96-108) mmol/L Carbon Dioxide (22-29) mmol/L Anion Gap (12-20) BUN (9-16) mg/dL Creatinine (0.5-1.4) mg/dL Estim Creat Clear Calc Estimated GFR Random Glucose (60-115) mg/dL Calcium (8.4-10.2) mg/dL Total Bilirubin (0.0-1.0) mg/dL Direct Bilirubin (0.0-0.5) mg/dL AST (5-37) U/L ALT (0-40) U/L Alkaline Phosphatase (39-117) U/L Troponin I High Sens (<3.5-35.0) ng/L B-Natriuretic Peptide (<100) pg/mL Total Protein (6.5-8.0) g/dL Albumin (3.5-5.0) g/dL COVID-19 (AMILCAR) Negative (Negative) COVID-19 Clin Com See Note Influenza Type A (RUY) Negative (Negative) Influenza Type B (RUY) Negative (Negative) Influenza A & B Note See Note 04/02/23 04/02/23 04/02/23 Range/Units 12:20 12:20 12:20 WBC (4.8-10.8) X10*3/uL RBC (4.60-5.80) X10*6/uL Hgb (14.0-18.0) g/dl Hct (42.0-52.0) % MCV (80.0-98.0) fL MCH (27.0-33.0) pg MCHC (31.0-36.0) g/dl RDW (11.0-16.0) % Plt Count (160-400) X10*3/uL MPV (9.4-12.4) fL Immature Gran % (Auto) (0.0-0.4) % Neut % (Auto) (45-73) % Lymph % (Auto) (20-40) % [place] % (Auto) (2-11) % Eos % (Auto) (0-4) % Baso % (Auto) (0-2) % Lymph # (Auto) (1.2-4.9) X10*3/uL [place] # (Auto) (0.1-1.2) X10*3/uL Eos # (Auto) (0.0-0.4) X10*3/uL Baso # (Auto) (0.0-0.2) X10*3/uL Abs Immat Gran (auto) (0.00-0.03) X10*3/uL Absolute Neuts (auto) (2.0-8.3) x10*3/uL Absolute Nucleated RBC (0.0-0.012) X10*3/uL Nucleated RBC % (auto) (0.0-0.2) /100WBC PT 11.3 (10.0-13.1) SEC INR 1.0 (0.9-1.1) Sodium 140 (135-145) mmol/L Potassium 4.3 (3.3-5.1) mmol/L Chloride 107 (96-108) mmol/L Carbon Dioxide 26 (22-29) mmol/L Anion Gap 11 L (12-20) BUN 16 (9-16) mg/dL Creatinine 0.88 (0.5-1.4) mg/dL Estim Creat Clear Calc 77.2 Estimated GFR > 60 Random Glucose 77 (60-115) mg/dL Calcium 9.1 D (8.4-10.2) mg/dL Total Bilirubin 1.1 H (0.0-1.0) mg/dL Direct Bilirubin 0.3 (0.0-0.5) mg/dL AST 29 (5-37) U/L ALT 29 (0-40) U/L Alkaline Phosphatase 73 (39-117) U/L Troponin I High Sens < 2.7 (<3.5-35.0) ng/L B-Natriuretic Peptide (<100) pg/mL Total Protein 6.5 (6.5-8.0) g/dL Albumin 4.0 (3.5-5.0) g/dL COVID-19 (AMILCAR) (Negative) COVID-19 Clin Com Influenza Type A (RUY) (Negative) Influenza Type B (RUY) (Negative) Influenza A & B Note 04/02/23 04/02/23 Range/Units 12:20 16:42 WBC (4.8-10.8) X10*3/uL RBC (4.60-5.80) X10*6/uL Hgb (14.0-18.0) g/dl Hct (42.0-52.0) % MCV (80.0-98.0) fL MCH (27.0-33.0) pg MCHC (31.0-36.0) g/dl RDW (11.0-16.0) % Plt Count (160-400) X10*3/uL MPV (9.4-12.4) fL Immature Gran % (Auto) (0.0-0.4) % Neut % (Auto) (45-73) % Lymph % (Auto) (20-40) % [place] % (Auto) (2-11) % Eos % (Auto) (0-4) % Baso % (Auto) (0-2) % Lymph # (Auto) (1.2-4.9) X10*3/uL [place] # (Auto) (0.1-1.2) X10*3/uL Eos # (Auto) (0.0-0.4) X10*3/uL Baso # (Auto) (0.0-0.2) X10*3/uL Abs Immat Gran (auto) (0.00-0.03) X10*3/uL Absolute Neuts (auto) (2.0-8.3) x10*3/uL Absolute Nucleated RBC (0.0-0.012) X10*3/uL Nucleated RBC % (auto) (0.0-0.2) /100WBC PT (10.0-13.1) SEC INR (0.9-1.1) Sodium (135-145) mmol/L Potassium (3.3-5.1) mmol/L Chloride (96-108) mmol/L Carbon Dioxide (22-29) mmol/L Anion Gap (12-20) BUN (9-16) mg/dL Creatinine (0.5-1.4) mg/dL Estim Creat Clear Calc Estimated GFR Random Glucose (60-115) mg/dL Calcium (8.4-10.2) mg/dL Total Bilirubin (0.0-1.0) mg/dL Direct Bilirubin (0.0-0.5) mg/dL AST (5-37) U/L ALT (0-40) U/L Alkaline Phosphatase (39-117) U/L Troponin I High Sens < 2.7 (<3.5-35.0) ng/L B-Natriuretic Peptide < 10 (<100) pg/mL Total Protein (6.5-8.0) g/dL Albumin (3.5-5.0) g/dL COVID-19 (AMILCAR) (Negative) COVID-19 Clin Com Influenza Type A (RUY) (Negative) Influenza Type B (RUY) (Negative) Influenza A & B Note Discharge Plan Discharge Clinical Impression: Upper respiratory infection, acute, COPD with acute exacerbation, Incidental lung nodule Patient Disposition: Home, Self-Care Instructions: Upper Respiratory Infection (ED), COPD (Chronic Obstructive Pulmonary Disease) (ED) Additional Instructions: Please take prescribed antibiotics as directed. Complete the full course. Please drink plenty of fluids and get plenty of rest. Your chest CT revealed a spiculated left upper lobe nodule. It is unclear whether not this is an infectious nodule or something more serious such as cancer. It is crucial that you follow-up with your primary care physician and your workday manager regarding this finding. If any new or worsening symptoms occur please return for re-evaluation. Prescriptions: New prednisone 20 mg tablet 40 mg PO DAILY 5 Days Qty: 10 0RF amoxicillin-pot clavulanate 875-125 mg tablet 1 tab PO BID Qty: 10 0RF azithromycin 250 mg tablet See Rx Instructions PO .COMPLEX Qty: 6 0RF Rx Instructions: For 250 mg dose pack: take 500 mg today (day 1), then 250 mg for 4 days (days 2-5) No Action naproxen 500 mg tablet 500 mg PO BID PRN (Reason: pain) Qty: 10 0RF oxycodone-acetaminophen [Percocet] 5-325 mg tablet 1 tab PO Q6H PRN (Reason: pain) Qty: 10 0RF cyclobenzaprine 10 mg tablet 10 mg PO TID PRN (Reason: muscle spasm) Qty: 10 0RF acetaminophen [Tylenol Extra Strength] 500 mg tablet 500 mg PO Q6H PRN (Reason: pain or fever) Qty: 20 0RF lidocaine [Lidoderm] 5 % adhesive patch,medicated 1 patch topical DAILY MDD remove after 12 hours PRN (Reason: pain) Qty: 30 0RF Rx Instructions: leave on most painful area for up to 12 hrs naproxen 500 mg tablet 500 mg PO BID PRN (Reason: pain) 10 Days Qty: 20 0RF cyclobenzaprine 5 mg tablet 5 mg PO Q8H PRN (Reason: pain (scale score 7-10)) 5 Days Qty: 14 0RF acetaminophen 500 mg capsule 1,000 mg PO Q8H PRN (Reason: pain) Qty: 30 0RF naproxen [Naprosyn] 500 mg tablet 500 mg PO BID PRN (Reason: pain) Qty: 20 0RF oxycodone 5 mg tablet 5 mg PO Q6H PRN (Reason: pain) Qty: 20 0RF Rx Instructions: Partial Fill upon patient request. prednisone 20 mg tablet 40 mg PO DAILY Qty: 10 0RF albuterol sulfate [ProAir HFA] 90 mcg/actuation HFA aerosol inhaler 2 puff inhalation Q4-6H PRN (Reason: bronchospasm) Qty: 8.5 0RF Interventions: ED Discharge Assessment Last Done: 04/02/23 23:15 Discharge Date/Time: 04/02/23 23:16
[2023-04-02 12:32] LABS: MANUAL DIFF FLAG NO
[2023-04-02 12:39] LABS: Basophils Absolute Auto 0.1 X10*3/uL (0.0-0.2); Basophils Percent Auto 0.8 % (0-2); Eosinophils Absolute Auto 1.1 X10*3/uL (0.0-0.4); Eosinophils Percent Auto 11.3 % (0-4); Hematocrit 44.7 % (42.0-52.0); Hemoglobin 14.2 g/dl (14.0-18.0); Imm Gran Abs Auto 0.01 X10*3/uL (0.00-0.03); Imm Gran Pct Auto 0.1 % (0.0-0.4); Lymphocytes Absolute Auto 1.6 X10*3/uL (1.2-4.9); Lymphocytes Percent Auto 16.8 % (20-40); Mean Corpuscular HGB Conc 31.8 g/dl (31.0-36.0); Mean Corpuscular Hemoglobin 27.9 pg (27.0-33.0); Mean Corpuscular Volume 87.8 fL (80.0-98.0); Mean Platelet Volume 9.3 fL (9.4-12.4); Monocytes Absolute Auto 0.7 X10*3/uL (0.1-1.2); Monocytes Percent Auto 7.8 % (2-11); Neutrophils Percent Auto 63.2 % (45-73); Platelet Count 251 X10*3/uL (160-400); Red Blood Count 5.09 X10*6/uL (4.60-5.80); Red Cell Distribution Width 15.4 % (11.0-16.0); White Blood Count 9.5 X10*3/uL (4.8-10.8)
[2023-04-02 12:41] LABS: Prothrombin Time 11.3 SEC (10.0-13.1)
[2023-04-02 12:53] LABS: Alanine Aminotransferase 29 U/L (0-40); Alkaline Phosphatase 73 U/L (39-117); Anion Gap 11 (12-20); Aspartate Amino Transferase 29 U/L (5-37); Bilirubin Direct 0.3 mg/dL (0.0-0.5); Bilirubin Total 1.1 mg/dL (0.0-1.0); Blood Urea Nitrogen 16 mg/dL (9-16); Calcium 9.1 mg/dL (8.4-10.2); Carbon Dioxide 26 mmol/L (22-29); Chloride 107 mmol/L (96-108); Creatinine Clr Calc Pharmacy 77.2; Estimated Glomerular Filt Rate > 60; Glucose Random 77 mg/dL (60-115); Potassium 4.3 mmol/L (3.3-5.1); Sodium 140 mmol/L (135-145); Total Protein 6.5 g/dL (6.5-8.0)
[2023-04-02 12:55] LABS: B Type Natriuretic Peptide < 10 pg/mL (<100)
[2023-04-02 12:58] LABS: Troponin-I High Sensitivity < 2.7 ng/L (<3.5-35.0)
[2023-04-02 13:01] LABS: COVID-19 Test Negative (Negative); IDNOW Serial# BCCEAD1C
[2023-04-02 13:02] LABS: IDNOW Serial# 9DB6401D; Influenza A Negative (Negative); Influenza B2 Negative (Negative)
--- NOTE | 2023-04-02 13:39 | ECG_ITS ---
Test Reason : chest pain Blood Pressure : / mmHG Vent. Rate : 075 BPM Atrial Rate : 075 BPM P-R Int : 158 ms QRS Dur : 128 ms QT Int : 408 ms P-R-T Axes : 064 086 051 degrees QTc Int : 455 ms Normal sinus rhythm Possible Left atrial enlargement Right bundle branch block Abnormal ECG When compared with ECG of 02-APR-2023 11:53, No significant change was found Referred By: Lexy Benitez Electronically Signed By:ASHLEY GLASS
[2023-04-02 17:16] LABS: Troponin-I High Sensitivity < 2.7 ng/L (<3.5-35.0)
--- NOTE | 2023-04-02 18:00 | ED_ITS ---
HPI - General Adult General Chief complaint: General Medical Stated complaint: Chest pain/Diff breathing Time Seen by Provider: 04/02/23 17:46 Source: patient and RN notes reviewed Mode of arrival: ambulatory Limitations: no limitations History of Present Illness HPI narrative: This is a 67-year-old male, with a past medical history of COPD, who presents emergency department with complaints of shortness of breath, congestion, and right-sided pleuritic chest pain which has been ongoing for the last month. Patient reports that he was seen here in the emergency department for these same symptoms and was given a course of steroids and albuterol unsure if this provided him with any relief. He then followed up with a linux security administrator who gave him a prescription for an antibiotic which he completed 2 days ago however his symptoms did not resolve. Does admit that some of his symptoms improved while being on the antibiotic. He admits to having 1 episode of drenching night sweats several nights ago. Denies any fevers or chills. No nasal congestion or rhinorrhea. No ear pain, sore throat, chest pain at rest, palpitations, abdominal pain, nausea, vomiting, diarrhea. Denies lower extremity swelling, denies calf tenderness. He recently traveled from [place]. Former smoker - quit smoking cigarettes 10 months ago, 50 pack year history. No hx of blood clots, cancer hx or family medical history of blood clots in the past. No other complaints or concerns at this time. MD complaint: SOB, congestion, right sided pleuritic CP Onset (ago): month(s) Quality: aching and sharp Pain Consistency: intermittent Relieving factors: none Exacerbating factors: none Associated symptoms: chest pain and fever/chills Treatments prior to arrival: none Related Data Previous Rx's Medication Instructions Recorded cyclobenzaprine 10 mg tablet 10 mg PO TID PRN muscle spasm #10 10/12/20 tabs naproxen 500 mg tablet 500 mg PO BID PRN pain #10 tabs 10/12/20 oxycodone-acetaminophen 5 mg-325 1 tab PO Q6H PRN pain #10 tabs 10/12/20 mg tablet (Percocet) acetaminophen 500 mg tablet 500 mg PO Q6H PRN pain or fever 11/12/21 (Tylenol Extra Strength) #20 tabs cyclobenzaprine 5 mg tablet 5 mg PO Q8H PRN pain (scale score 11/12/21 7-10) 5 days #14 tabs lidocaine 5 % topical patch 1 patch topical DAILY PRN pain #30 11/12/21 (Lidoderm) ea naproxen 500 mg tablet 500 mg PO BID PRN pain 10 days #20 11/12/21 tabs acetaminophen 500 mg capsule 1,000 mg PO Q8H PRN pain #30 caps 01/09/23 naproxen 500 mg tablet (Naprosyn) 500 mg PO BID PRN pain #20 tabs 01/09/23 oxycodone 5 mg tablet 5 mg PO Q6H PRN pain #20 tabs 01/09/23 albuterol sulfate 90 mcg/actuation 2 puff inhalation Q4-6H PRN 03/13/23 aerosol inhaler (ProAir HFA) bronchospasm #8.5 grams prednisone 20 mg tablet 40 mg PO DAILY #10 tabs 03/13/23 amoxicillin 875 mg-potassium 1 tab PO BID #10 tabs 04/02/23 clavulanate 125 mg tablet azithromycin 250 mg tablet See Rx Instructions PO .COMPLEX #6 04/02/23 tabs prednisone 20 mg tablet 40 mg PO DAILY 5 days #10 tabs 04/02/23 Allergies Allergy/AdvReac Type Severity Reaction Status Date / Time No Known Allergies Allergy Verified 04/02/23 11:41 Review of Systems Review of Systems: Constitutional: No Weight loss, No Fever, No Chills, No Night Sweats, No Fatigue, No Malaise ENT/Mouth: No Hearing loss, No Ear Pain, No Nasal Congestion, No Sinus Pain, No Hoarseness, No sore throat, No Rhinorrhea, No Swallowing Difficulty Eyes: No Eye Pain, No Swelling, No Redness, No Foreign Body, No Discharge, No Vision Changes Cardiovascular: +Chest Pain, No SOB, + Dyspnea on Exertion, No Orthopnea, No Edema, No Palpitations Respiratory: No Cough, No Sputum, No Wheezing, No Smoke Exposure, + Dyspnea Gastrointestinal: No Nausea, No Vomiting, No Diarrhea, No Constipation, No Abdominal pain, No Hematochezia, No Melena Genitourinary: No irregular bleeding, No Dysuria, No Urinary Frequency, No Hematuria, No Urinary Incontinence/retention, No Urgency, No Flank Pain, No Urinary Flow Changes, No Hesitancy Musculoskeletal: No joint pain, No Myalgias, No Joint Swelling Skin: No Skin Lesions, No rash Neuro: No Weakness, No Numbness, No Paresthesias, No Loss of Consciousness, No Dizziness, No Headache Psych: No Anxiety/Panic, No Depression, No SI/HI/AH/VH, No Social Issues, Heme/Lymph: No Bruising, No Bleeding,No Lymphadenopathy Endocrine: No Polyuria, No Polydipsia, No Temperature Intolerance Yes all other systems are reviewed and are negative Constitutional: Constitutional: Reports as per [facility] Past Medical History Medical History COPD (chronic obstructive pulmonary disease) Surgical History H/O left knee surgery S/P rotator cuff repair Status post left rotator cuff repair Social History Social History Alcohol intake: never Patient Tobacco Use Status: Never used Tobacco Advance Directives: No Advance Directives Information Provided: Yes Current occupational status: retired Current occupation: right hand dominant Physical Exam ED Vital Signs: Vital Signs - 24 hr 04/02/23 11:38 04/02/23 18:25 04/02/23 19:10 Temperature 98 F 98.2 F 97.7 F Pulse Rate 78 84 88 Respiratory Rate 18 18 23 H Blood Pressure 124/82 122/80 Pulse Oximetry 97 97 95 Oxygen Delivery Method Room Air Room Air Room Air 04/02/23 20:37 Temperature 98.0 F Pulse Rate 83 Respiratory Rate 22 H Blood Pressure 123/83 Pulse Oximetry 94 Oxygen Delivery Method Room Air BMI result Body Mass Index 23.2 Const General: cooperative, comfortable and no acute distress Orientation/consciousness: patient oriented x3 Limitations: no limitations HENMT Head: Yes normal to inspection, Yes normocephalic and Yes atraumatic Ears: hearing grossly normal bilaterally General nose exam: Normal external nose present Face and sinus: Yes normal facial exam Mouth: Normal oral and palatal mucosa present, oropharynx normal and moist mucous membranes Throat: Yes posterior oropharynx normal Eyes General: appearance normal, both eyes and all related structures Eyelids: Yes eyelids normal Conjunctivae: conjunctivae normal Sclerae: sclerae normal Pupils: Equal, round and reactive pupils present EOM: EOMs intact bilaterally Neck Neck: Yes normal visual inspection, Yes full ROM and Yes no lymphadenopathy Lymphatic: no lymphadenopathy noted Chest Chest palpation & inspection: normal inspection of the chest and normal palpation of entire chest wall Resp Other: Faint crackles to the left lower base, faint expiratory wheeze noted throughout all lung cross. Effort & Inspection: normal respiratory effort and able to speak in complete sentences Cardio Rate: regular rate Rhythm: regular rhythm Heart sounds: S1 normal heart sound present and S2 normal heart sound present GI Inspection: Yes normal to inspection Skin General skin exam: no rashes or lesions noted Trauma: no lacerations or abrasions Wounds: no wounds Neuro General: patient oriented x3 and moves all extremities Cranial nerves: Yes Equal, round and reactive pupils present Extrem General: Yes normal to inspection, Yes capillary refill normal, Yes no pedal edema and Yes no calf tenderness Right upper extremity: normal to inspection Left upper extremity: normal to inspection Right lower extremity: normal to inspection Left lower extremity: normal to inspection Course Reevaluation(s) Reevaluation #1: Ultrasound negative for DVT. CT scan performed awaiting radiology report. Patient was re-evaluated and found to be asleep in stretcher. Pt remains stable. Time: 22:19 Reevaluation #2: CTA chest returns revealing emphysema, no evidence of pulmonary embolism there is a slightly spiculated left. Infectious, inflammatory, and neoplastic processes should be considered. Short-term follow-up chest CT appearance clinical suspicion of infection will be recommended. Otherwise PET/CT scan or tissue sampling should be considered. Small calcified and noncalcified left upper and left lower lobe nodules. I will with the patient in depth, discussing that this could be a presentation of a COPD exacerbation ordered start of a pneumonia however given smoking history and recurrent symptoms malignancy such as cancer cannot be excluded. I urged the importance of following up with his primary care physician and linux security administrator regarding these findings. I will treat as a community-acquired pneumonia with Augmentin and azithromycin and pr ednisone. Patient states that he will call his provider this week to follow-up. Patient understands and agrees with plan. Patient is stable for discharge. Medications Administered Discontinued Medications Generic Name Dose Route Start Last Admin Trade Name Freq PRN Reason Stop Dose Admin Iohexol 100 ml 04/02/23 21:12 04/02/23 21:13 Iohexol 350 Mg/Ml 100 Ml Infus..Btl IV 04/02/23 21:13 65 ml ONCE ONE Administration Medical Decision Making Medical Decision Making [facility] Narrative: 67-year-old male with a past medical history of COPD, presenting to the emergency department for evaluation of pleuritic right-sided chest pain, shortness a breath on exertion, and productive cough x1 month. On examination, vital signs stable. On examination, pt has fine crackles in the left lower lung base. Given recent travel and spasms in his lower legs will obtain CTA of the chest to rule out pulmonary embolism. No calf tenderness on exam. Plan: Labs, EKG, CTA chest, US Bilateral LE. Differential Diagnosis Differential Diagnoses: The differential diagnosis associated with the presentation includes COPD exaceration, PE, ACS, pneumonia Admission/Observation Consideration of admission/observation: Escalation of care including admission/observation considered Lab Data [facility] Lab Attestation statement: I reviewed the patient's lab results. 04/02/23 12:20 04/02/23 12:20 Labs: Lab Results 04/02/23 04/02/23 04/02/23 Range/Units 12:18 12:18 12:20 WBC 9.5 (4.8-10.8) X10*3/uL RBC 5.09 (4.60-5.80) X10*6/uL Hgb 14.2 (14.0-18.0) g/dl Hct 44.7 (42.0-52.0) % MCV 87.8 (80.0-98.0) fL MCH 27.9 (27.0-33.0) pg MCHC 31.8 (31.0-36.0) g/dl RDW 15.4 (11.0-16.0) % Plt Count 251 (160-400) X10*3/uL MPV 9.3 L (9.4-12.4) fL Immature Gran % (Auto) 0.1 (0.0-0.4) % Neut % (Auto) 63.2 (45-73) % Lymph % (Auto) 16.8 L (20-40) % Finney % (Auto) 7.8 (2-11) % Eos % (Auto) 11.3 H (0-4) % Baso % (Auto) 0.8 (0-2) % Lymph # (Auto) 1.6 (1.2-4.9) X10*3/uL Finney # (Auto) 0.7 (0.1-1.2) X10*3/uL Eos # (Auto) 1.1 H (0.0-0.4) X10*3/uL Baso # (Auto) 0.1 (0.0-0.2) X10*3/uL Abs Immat Gran (auto) 0.01 (0.00-0.03) X10*3/uL Absolute Neuts (auto) 6.0 (2.0-8.3) x10*3/uL Absolute Nucleated RBC 0.000 (0.0-0.012) X10*3/uL Nucleated RBC % (auto) 0.0 (0.0-0.2) /100WBC PT (10.0-13.1) SEC INR (0.9-1.1) Sodium (135-145) mmol/L Potassium (3.3-5.1) mmol/L Chloride (96-108) mmol/L Carbon Dioxide (22-29) mmol/L Anion Gap (12-20) BUN (9-16) mg/dL Creatinine (0.5-1.4) mg/dL Estim Creat Clear Calc Estimated GFR Random Glucose (60-115) mg/dL Calcium (8.4-10.2) mg/dL Total Bilirubin (0.0-1.0) mg/dL Direct Bilirubin (0.0-0.5) mg/dL AST (5-37) U/L ALT (0-40) U/L Alkaline Phosphatase (39-117) U/L Troponin I High Sens (<3.5-35.0) ng/L B-Natriuretic Peptide (<100) pg/mL Total Protein (6.5-8.0) g/dL Albumin (3.5-5.0) g/dL COVID-19 (AMILCAR) Negative (Negative) COVID-19 Clin Com See Note Influenza Type A (RUY) Negative (Negative) Influenza Type B (RUY) Negative (Negative) Influenza A & B Note See Note 04/02/23 04/02/23 04/02/23 Range/Units 12:20 12:20 12:20 WBC (4.8-10.8) X10*3/uL RBC (4.60-5.80) X10*6/uL Hgb (14.0-18.0) g/dl Hct (42.0-52.0) % MCV (80.0-98.0) fL MCH (27.0-33.0) pg MCHC (31.0-36.0) g/dl RDW (11.0-16.0) % Plt Count (160-400) X10*3/uL MPV (9.4-12.4) fL Immature Gran % (Auto) (0.0-0.4) % Neut % (Auto) (45-73) % Lymph % (Auto) (20-40) % Finney % (Auto) (2-11) % Eos % (Auto) (0-4) % Baso % (Auto) (0-2) % Lymph # (Auto) (1.2-4.9) X10*3/uL Finney # (Auto) (0.1-1.2) X10*3/uL Eos # (Auto) (0.0-0.4) X10*3/uL Baso # (Auto) (0.0-0.2) X10*3/uL Abs Immat Gran (auto) (0.00-0.03) X10*3/uL Absolute Neuts (auto) (2.0-8.3) x10*3/uL Absolute Nucleated RBC (0.0-0.012) X10*3/uL Nucleated RBC % (auto) (0.0-0.2) /100WBC PT 11.3 (10.0-13.1) SEC INR 1.0 (0.9-1.1) Sodium 140 (135-145) mmol/L Potassium 4.3 (3.3-5.1) mmol/L Chloride 107 (96-108) mmol/L Carbon Dioxide 26 (22-29) mmol/L Anion Gap 11 L (12-20) BUN 16 (9-16) mg/dL Creatinine 0.88 (0.5-1.4) mg/dL Estim Creat Clear Calc 77.2 Estimated GFR > 60 Random Glucose 77 (60-115) mg/dL Calcium 9.1 D (8.4-10.2) mg/dL Total Bilirubin 1.1 H (0.0-1.0) mg/dL Direct Bilirubin 0.3 (0.0-0.5) mg/dL AST 29 (5-37) U/L ALT 29 (0-40) U/L Alkaline Phosphatase 73 (39-117) U/L Troponin I High Sens < 2.7 (<3.5-35.0) ng/L B-Natriuretic Peptide (<100) pg/mL Total Protein 6.5 (6.5-8.0) g/dL Albumin 4.0 (3.5-5.0) g/dL COVID-19 (AMILCAR) (Negative) COVID-19 Clin Com Influenza Type A (RUY) (Negative) Influenza Type B (RUY) (Negative) Influenza A & B Note 04/02/23 04/02/23 Range/Units 12:20 16:42 WBC (4.8-10.8) X10*3/uL RBC (4.60-5.80) X10*6/uL Hgb (14.0-18.0) g/dl Hct (42.0-52.0) % MCV (80.0-98.0) fL MCH (27.0-33.0) pg MCHC (31.0-36.0) g/dl RDW (11.0-16.0) % Plt Count (160-400) X10*3/uL MPV (9.4-12.4) fL Immature Gran % (Auto) (0.0-0.4) % Neut % (Auto) (45-73) % Lymph % (Auto) (20-40) % Finney % (Auto) (2-11) % Eos % (Auto) (0-4) % Baso % (Auto) (0-2) % Lymph # (Auto) (1.2-4.9) X10*3/uL Finney # (Auto) (0.1-1.2) X10*3/uL Eos # (Auto) (0.0-0.4) X10*3/uL Baso # (Auto) (0.0-0.2) X10*3/uL Abs Immat Gran (auto) (0.00-0.03) X10*3/uL Absolute Neuts (auto) (2.0-8.3) x10*3/uL Absolute Nucleated RBC (0.0-0.012) X10*3/uL Nucleated RBC % (auto) (0.0-0.2) /100WBC PT (10.0-13.1) SEC INR (0.9-1.1) Sodium (135-145) mmol/L Potassium (3.3-5.1) mmol/L Chloride (96-108) mmol/L Carbon Dioxide (22-29) mmol/L Anion Gap (12-20) BUN (9-16) mg/dL Creatinine (0.5-1.4) mg/dL Estim Creat Clear Calc Estimated GFR Random Glucose (60-115) mg/dL Calcium (8.4-10.2) mg/dL Total Bilirubin (0.0-1.0) mg/dL Direct Bilirubin (0.0-0.5) mg/dL AST (5-37) U/L ALT (0-40) U/L Alkaline Phosphatase (39-117) U/L Troponin I High Sens < 2.7 (<3.5-35.0) ng/L B-Natriuretic Peptide < 10 (<100) pg/mL Total Protein (6.5-8.0) g/dL Albumin (3.5-5.0) g/dL COVID-19 (AMILCAR) (Negative) COVID-19 Clin Com Influenza Type A (RUY) (Negative) Influenza Type B (RUY) (Negative) Influenza A & B Note Independent Interpretation I performed an independent interpretation of an: EKG Interpretation: Normal sinus rhythm with a ventricular rate of 70 beats per minute, NJ interval 164, QTC 438. right bundle-branch block seen on previous EKGs. No significant change from previous. Radiology Impression Discussion of test interpretation with radiology: I have reviewed the radiologist's reading. Radiologist Impression: EXAMINATION:? US VENOUS ULTRASOUND WITH DOPPLER LOWER EXTREMITY, BILATERAL CLINICAL INFORMATION:? Shortness of breath COMPARISON:? None available. TECHNIQUE: Ultrasound of the deep veins is performed from the hip to the calf with compression sonography and color and pulse Doppler assessment. Spectral analysis with color-flow imaging is performed. FINDINGS: RIGHT: There is normal venous compression and respiratory variation and augmented flow. The visualized common femoral vein, superficial femoral vein, profunda femoral vein, popliteal vein, and the trifurcation region shows no evidence of deep venous thrombosis. ? There is no significant popliteal fossa cyst. LEFT: There is normal venous compression and respiratory variation and augmented flow. The visualized common femoral vein, superficial femoral vein, profunda femoral vein, popliteal vein, and the trifurcation region shows no evidence of deep venous thrombosis. ? There is no significant popliteal fossa cyst. US/US venous duplex LE BI IMPRESSION: No DVT demonstrated in the bilateral lower extremity. Dictated By: Karin Boudreaux MD CLINICAL INFORMATION: Reason for Exam chest pain COMPARISON: Previous chest x-ray February 2023 TECHNIQUE: Prior to contrast administration, noncontrast localization images were obtained. ? Subsequently, multidetector volumetric imaging was performed from the thoracic inlet to below the diaphragms following the administration of 65 mL Omnipaque 350 intravenous contrast. No contrast reaction reported Sagittal, coronal, and MIP oblique sagittal reformatted images were obtained on the CT workstation, uploaded to PACS, and reviewed. This CT examination was performed using dose optimization techniques as appropriate, variously including the following: *Automated exposure control *Adjustment of mA and/or kV according to patient size (this includes techniques or standardized protocols for targeted exams where dose is matched to indication/reason for exam; i.e. extremities or head) *Use of iterative reconstruction technique Total exam dose-length product 234 mGy-cm FINDINGS: QUALITY OF STUDY/CONTRAST BOLUS: Satisfactory. PULMONARY ARTERIES: No pulmonary emboli.? THORACIC AORTA: No aneurysm. LUNG: Emphysema. Spiculated nodule in the left upper lobe measuring 1.4 x 1.8 cm axial image 150 series 7. No surrounding increased groundglass attenuation.. 5 mm calcified left upper lobe nodule axial image 234 series 7.. 3 mm noncalcified left upper lobe nodule axial image 301 series 7. 3 mm calcified left upper lobe nodule axial image 247 series 7. 2 mm noncalcified left lower lobe nodule axial image 253 series 7. 2 mm calcified left lower lobe nodule axial image 282 series 7. PLEURA: No pleural effusion or pneumothorax. MEDIASTINUM: Normal heart size.? No pericardial effusion.? No enlarged hilar or mediastinal lymphadenopathy.? No evidence of septal bowing or right heart strain. CORONARY ARTERY CALCIFICATION: None visualized on this study. CHEST WALL/AXILLA: No axillary or internal mammary lymphadenopathy. OSSEOUS STRUCTURES: No acute or suspicious osseous abnormality. Degenerative changes of the spine. UPPER ABDOMEN: Unremarkable.? No reflux of contrast into the hepatic veins to suggest elevated right heart pressures. CT/CT angio chest PE protocol IMPRESSION: No evidence of pulmonary embolism. Emphysema. 1.4 x 1.8 cm slightly spiculated left upper lobe nodule. Infectious, inflammatory and neoplastic processes should be considered. Short-term follow-up chest CT appearance clinical suspicion of infection would be recommended. Otherwise PET/CT scan or tissue sampling should be considered. Small calcified and noncalcified left upper and left lower lobe nodules. ? VTE: negative Dictated By: Karin Boudreaux MD Signed By: <Electronically signed by Karin Boudreaux MD in OV> 04/02/232219 DD/ 17 TD/TT:? Computer Systems Integrator: VILLA External Record Review External record reviewed: Inpatient record, Office record, Outpatient record, Prior outpatient labs, Prior outpatient radiology, Primary care record and Outside ED record Discharge Plan Discharge Clinical Impression: Upper respiratory infection, acute, COPD with acute exacerbation, Incidental lung nodule Patient Disposition: Home, Self-Care Instructions: Upper Respiratory Infection (ED), COPD (Chronic Obstructive Pulmonary Disease) (ED) Additional Instructions: Please take prescribed antibiotics as directed. Complete the full course. Please drink plenty of fluids and get plenty of rest. Your chest CT revealed a spiculated left upper lobe nodule. It is unclear whether not this is an infectious nodule or something more serious such as cancer. It is crucial that you follow-up with your primary care physician and your linux security administrator regarding this finding. If any new or worsening symptoms occur please return for re-evaluation. Prescriptions: New prednisone 20 mg tablet 40 mg PO DAILY 5 Days Qty: 10 0RF amoxicillin-pot clavulanate 875-125 mg tablet 1 tab PO BID Qty: 10 0RF azithromycin 250 mg tablet See Rx Instructions PO .COMPLEX Qty: 6 0RF Rx Instructions: For 250 mg dose pack: take 500 mg today (day 1), then 250 mg for 4 days (days 2-5) No Action naproxen 500 mg tablet 500 mg PO BID PRN (Reason: pain) Qty: 10 0RF oxycodone-acetaminophen [Percocet] 5-325 mg tablet 1 tab PO Q6H PRN (Reason: pain) Qty: 10 0RF cyclobenzaprine 10 mg tablet 10 mg PO TID PRN (Reason: muscle spasm) Qty: 10 0RF acetaminophen [Tylenol Extra Strength] 500 mg tablet 500 mg PO Q6H PRN (Reason: pain or fever) Qty: 20 0RF lidocaine [Lidoderm] 5 % adhesive patch,medicated 1 patch topical DAILY MDD remove after 12 hours PRN (Reason: pain) Qty: 30 0RF Rx Instructions: leave on most painful area for up to 12 hrs naproxen 500 mg tablet 500 mg PO BID PRN (Reason: pain) 10 Days Qty: 20 0RF cyclobenzaprine 5 mg tablet 5 mg PO Q8H PRN (Reason: pain (scale score 7-10)) 5 Days Qty: 14 0RF acetaminophen 500 mg capsule 1,000 mg PO Q8H PRN (Reason: pain) Qty: 30 0RF naproxen [Naprosyn] 500 mg tablet 500 mg PO BID PRN (Reason: pain) Qty: 20 0RF oxycodone 5 mg tablet 5 mg PO Q6H PRN (Reason: pain) Qty: 20 0RF Rx Instructions: Partial Fill upon patient request. prednisone 20 mg tablet 40 mg PO DAILY Qty: 10 0RF albuterol sulfate [ProAir HFA] 90 mcg/actuation HFA aerosol inhaler 2 puff inhalation Q4-6H PRN (Reason: bronchospasm) Qty: 8.5 0RF Interventions: ED Discharge Assessment Last Done: 04/02/23 23:15 Discharge Date/Time: 04/02/23 23:16
[2023-04-02 18:25] VITALS: BP 124/82; PULSE 84; RESP 18; TEMP 36.8; O2SAT 97
[2023-04-02 19:10] VITALS: BP 122/80; PULSE 88; RESP 23; TEMP 36.5; O2SAT 95
[2023-04-02 20:37] VITALS: BP 123/83; PULSE 83; RESP 22; TEMP 36.7; O2SAT 94
[2023-04-02] MEDS: iohexoL 350 MG/ML 100 ML INFUS..BTL IV (21:13)
== END 2023-04-02 23:16 | disposition home or self-care (01) ==
PROVIDERS: Physician Assistant; Emergency Provider Internal Medicine; PCP Internal Medicine
DX: J06.9 Acute upper respiratory infection, unspecified (principal); J44.1 Chronic obstructive pulmonary disease with (acute) exacerbation; R06.02 Shortness of breath; R91.8 Other nonspecific abnormal finding of lung field; R91.1 Solitary pulmonary nodule; Z20.822 Contact with and (suspected) exposure to COVID-19; Z79.899 Other long term (current) drug therapy
CPT/HCPCS: 36415; 71275; 80048; 80076; 83880; 84484; 85025; 85610; 87502; 87635; 93005; 93970; 99284; Q9967

== ENCOUNTER 2024-10-15 07:14 | Day surgery (SDC) | payer OTHER, SELFPAY ==
[2024-10-15] VITALS (7 sets, daily range): BP systolic 131–150; BP diastolic 65–94; PULSE 58–104; RESP 16–18; TEMP 36.1–37; O2SAT 96–100; BMI 22.7
--- NOTE | ~2024-10-15 | XR_ITS ---
EXAMINATION: XR HAND, RIGHT CLINICAL INFORMATION: foreign body COMPARISON: None available. TECHNIQUE: PA, lateral, and oblique views of the right hand. FINDINGS: No metallic or radiopaque foreign body. No acute cortical disruption or gross malalignment. No lytic or blastic lesions. No subcutaneous emphysema. XR/XR hand RT min 3V IMPRESSION: No gross foreign body. Electronically signed by: Cam Rodriguez MD 10/15/2024 08:05 AM DEXTER
--- NOTE | 2024-10-15 07:46 | ED.SKABFB ---
HPI - Skin/Abscess/Foreign Bdy General Chief complaint: General Medical Stated complaint: Splinter R hand Time Seen by Provider: 10/15/24 07:24 Source: patient Mode of arrival: ambulatory Limitations: no limitations History of Present Illness ED Provider: TUAN SQUIRES narrative: 68 yo male with PMH of COPD here with c/o R hand dominance was working with pressure treated wood that went into webspace between thumb and index finger. He states it was large and he did get some out but he knows there is more in there. He developed pain, swelling, yellow drainage and it has only gotten worse over the past two days. He is unclear about his Tdap. He notes it hurts to touch and carry things complaint: other (R hand splinter) Onset (ago): day(s) (3) Tetanus up to date: unsure Location: R hand Severity: moderate Quality: aching Pain Consistency: intermittent Relieving factors: immobilization Exacerbating factors: palpation and movement Context: other (FB) Associated symptoms: denies other symptoms Treatments prior to arrival: other (attempted to remove FB, ointment) Related Data Previous Rx's ?Medication ?Instructions ?Recorded cyclobenzaprine 10 mg tablet 10 mg PO TID PRN muscle spasm #10 10/12/20 tabs naproxen 500 mg tablet 500 mg PO BID PRN pain #10 tabs 10/12/20 oxycodone-acetaminophen 5 mg-325 1 tab PO Q6H PRN pain #10 tabs 20 mg tablet (Percocet) acetaminophen 500 mg tablet 500 mg PO Q6H PRN pain or fever 11/12/21 (Tylenol Extra Strength) #20 tabs cyclobenzaprine 5 mg tablet 5 mg PO Q8H PRN pain (scale score 11/12/21 7-10) 5 days #14 tabs lidocaine 5 % topical patch 1 patch topical DAILY PRN pain #30 11/12/21 (Lidoderm) ea naproxen 500 mg tablet 500 mg PO BID PRN pain 10 days #20 11/12/21 tabs acetaminophen 500 mg capsule 1,000 mg (2 x 500 mg) PO Q8H PRN 01/09/23 pain #30 caps naproxen 500 mg tablet (Naprosyn) 500 mg PO BID PRN pain #20 tabs 01/09/23 oxycodone 5 mg tablet 5 mg PO Q6H PRN pain #20 tabs 01/09/23 albuterol sulfate 90 mcg/actuation 2 puff inhalation Q4-6H PRN 03/13/23 aerosol inhaler (ProAir HFA) bronchospasm #8.5 grams prednisone 20 mg tablet 40 mg (2 x 20 mg) PO DAILY #10 tabs 03/13/23 amoxicillin 875 mg-potassium 1 tab PO BID #10 tabs 04/02/23 clavulanate 125 mg tablet azithromycin 250 mg tablet See Rx Instructions PO .COMPLEX #6 04/02/23 tabs prednisone 20 mg tablet 40 mg (2 x 20 mg) PO DAILY 5 days 04/02/23 #10 tabs cephalexin 500 mg capsule 500 mg PO QID 7 days #28 caps 10/15/24 doxycycline hyclate 100 mg capsule 100 mg PO BID 7 days #14 caps 10/15/24 Allergies Allergy/AdvReac Type Severity Reaction Status Date / Time No Known Allergies Allergy Verified 10/15/24 07:19 Review of Systems Review of Systems: Constitutional : No Fever, No Chills ENT/Mouth : No sore throat, No Rhinorrhea Eyes: No Eye Pain, No Swelling, No Redness Cardiovascular : No Chest Pain, No SOB Respiratory : No Cough, No Sputum Gastrointestinal : No Nausea, No Vomiting, No Diarrhea, No abdominal Pain Genitourinary : No Dysuria, No Hematuria Musculoskeletal : pos joint pain, No Myalgias, pos Joint Swelling Skin : pos Skin Lesions, positive skin rash Neuro : No Weakness, No Numbness, No Headache All other systems reviewed and are negative [facility] Past Medical History Attestation statement: The following information was validated with the patient. Source: old records reviewed Medical History COPD (chronic obstructive pulmonary disease) Surgical History H/O left knee surgery Status post left rotator cuff repair S/P rotator cuff repair Social History Social History Alcohol intake: never Patient Tobacco Use Status: Never used Tobacco Smoked in Last 30 Days: No Use of substances other than those prescribed or required for medical reasons: No Advance Directives: No Advance Directives Information Provided: Yes Do you have a plan to hurt others: No Plan Current occupational status: retired Current occupation: right hand dominant Physical Exam Vital Signs: Vital Signs: Last Vital Signs Temp 97.0 F 10/15/24 12:36 Pulse 104 H 10/15/24 14:40 Resp 18 10/15/24 14:40 BP 150/81 H 10/15/24 14:40 Pulse Ox 96 10/15/24 14:40 O2 Del Method Room Air 10/15/24 14:40 BMI result Body Mass Index 22.7 Appearance: Alert. Oriented X3. No acute distress. Eyes: Pupils equal, round and reactive to light. ENT: Pharynx normal. Neck: Normal inspection. Neck supple. CVS: Normal heart rate and rhythm. Pulses normal. Respiratory: No respiratory distress. Breath sounds normal. Abdomen: Soft and non-tender. Skin: Skin warm and dry. Normal skin color. Extremities: No lower extremity edema. R hand swollen and erythematous with puncture wound most swelling in web space between 1-2 digit, he has normal ROM and flexion on exam, NV intact, entire hand is more swollen compared to L. see picture below Neuro: Oriented X 3. No motor deficit. No sensory deficit. Medications Administered Discontinued Medications Generic Name Dose Route Start Last Admin Trade Name Freq PRN Reason Stop Dose Admin Diphtheria/Tetanus/Acell Pertussis 0.5 ml 10/15/24 07:59 10/15/24 08:37 Diphth,Pertus(Acell),Tet Adult 0.5 Ml Syringe IM 10/15/24 08:00 0.5 ml .ONCE ONE Administration Piperacillin Sod/Tazobactam 50 mls @ 100 mls/hr 10/15/24 07:59 10/15/24 08:57 Sod 3.375 gm/ Sodium Chloride IV 10/15/24 08:28 Infused ONCE ONE Infusion Vancomycin HCl 1,000 mg/ 535 mls @ 267.5 mls/hr 10/15/24 09:00 10/15/24 11:04 Vancomycin HCl 750 mg/ Sodium IV 10/15/24 10:59 Infused Chloride ONCE ONE Infusion Medical Decision Making Medical Decision Making MDM Narrative: 68 yo male with PMH of COPD here with c/o R hand swelling, pain, redness, yellow drainage following splinter from pressure treated wood. At this time xray ordered, labs, IV antibiotics and consult to orthopedics for I+D. He is NV intact. Zosyn and vancomycin ordered will update Tdap. 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 10/15/24 08:25 10/15/24 08:25 Labs: Lab Results 10/15/24 Range/Units 08:25 WBC 8.4 (4.8-10.8) X10*3/uL RBC 5.06 (4.60-5.80) X10*6/uL Hgb 14.5 (14.0-18.0) g/dl Hct 44.0 (42.0-52.0) % MCV 87.0 (80.0-98.0) fL MCH 28.7 (27.0-33.0) pg MCHC 33.0 (31.0-36.0) g/dl RDW 14.4 (11.0-16.0) % Plt Count 250 (160-400) X10*3/uL MPV 8.7 L (9.4-12.4) fL Immature Gran % (Auto) 0.2 (0.0-0.4) % Neut % (Auto) 60.6 (45-73) % Lymph % (Auto) 20.4 (20-40) % [place] % (Auto) 6.9 (2-11) % Eos % (Auto) 10.9 H (0-4) % Baso % (Auto) 1.0 (0-2) % Lymph # (Auto) 1.7 (1.2-4.9) X10*3/uL [place] # (Auto) 0.6 (0.1-1.2) X10*3/uL Eos # (Auto) 0.9 H (0.0-0.4) X10*3/uL Baso # (Auto) 0.1 (0.0-0.2) X10*3/uL Abs Immat Gran (auto) 0.02 (0.00-0.03) X10*3/uL Absolute Neuts (auto) 5.1 (2.0-8.3) x10*3/uL Absolute Nucleated RBC 0.000 (0.0-0.012) X10*3/uL Nucleated RBC % (auto) 0.0 (0.0-0.2) /100WBC PT 11.8 (10.9-12.4) SEC INR 1.0 (0.9-1.1) Sodium 141 (135-145) mmol/L Potassium 3.7 (3.3-5.1) mmol/L Chloride 109 H (96-108) mmol/L Carbon Dioxide 25 (22-29) mmol/L Anion Gap 11 L (12-20) BUN 15 (9-16) mg/dL Creatinine 0.78 (0.5-1.4) mg/dL Estim Creat Clear Calc 85.4 Estimated GFR > 60 Random Glucose 99 (60-115) mg/dL Lactic Acid 1.4 (0.5-2.0) mmol/L Calcium 10.3 H D (8.4-10.2) mg/dL Magnesium 2.1 (1.6-2.6) mg/dL Total Bilirubin 0.7 (0.0-1.0) mg/dL Direct Bilirubin 0.2 (0.0-0.5) mg/dL AST 25 (5-37) U/L ALT 28 (0-40) U/L Alkaline Phosphatase 78 (39-117) U/L Total Protein 7.4 (6.5-8.0) g/dL Albumin 4.3 (3.5-5.0) g/dL Independent Interpretation I performed an independent interpretation of an: Plain X-Ray (no FB) Radiology Impression Discussion of test interpretation with radiology: I have reviewed the radiologist's reading. Prescription Management I considered prescription management with: Antibiotic Discharge Plan Discharge Clinical Impression: Foreign body hand-infection Patient Disposition: Admitted as Observation Instructions: Puncture Wound (ED), Abscess (ED) Additional Instructions: you need to be seen tomorrow orthopedics will see you in the office if anything worsens prior to the appointment please return as soon as possible it was discussed this could worsen if you did not wait for the I+D today, come back WILNER with any issues. you need to see orthopedics please follow up in the clinic they will call you Prescriptions: New doxycycline hyclate 100 mg capsule 100 mg PO BID 7 Days Qty: 14 0RF cephalexin 500 mg capsule 500 mg PO QID 7 Days Qty: 28 0RF No Action naproxen 500 mg tablet 500 mg PO BID PRN (Reason: pain) Qty: 10 0RF oxycodone-acetaminophen [Percocet] 5-325 mg tablet 1 tab PO Q6H PRN (Reason: pain) Qty: 10 0RF cyclobenzaprine 10 mg tablet 10 mg PO TID PRN (Reason: muscle spasm) Qty: 10 0RF acetaminophen [Tylenol Extra Strength] 500 mg tablet 500 mg PO Q6H PRN (Reason: pain or fever) Qty: 20 0RF lidocaine [Lidoderm] 5 % adhesive patch,medicated 1 patch topical DAILY MDD remove after 12 hours PRN (Reason: pain) Qty: 30 0RF Rx Instructions: leave on most painful area for up to 12 hrs naproxen 500 mg tablet 500 mg PO BID PRN (Reason: pain) 10 Days Qty: 20 0RF cyclobenzaprine 5 mg tablet 5 mg PO Q8H PRN (Reason: pain (scale score 7-10)) 5 Days Qty: 14 0RF acetaminophen 500 mg capsule 1,000 mg PO Q8H PRN (Reason: pain) Qty: 30 0RF naproxen [Naprosyn] 500 mg tablet 500 mg PO BID PRN (Reason: pain) Qty: 20 0RF oxycodone 5 mg tablet 5 mg PO Q6H PRN (Reason: pain) Qty: 20 0RF Rx Instructions: Partial Fill upon patient request. prednisone 20 mg tablet 40 mg PO DAILY 5 Days Qty: 10 0RF amoxicillin-pot clavulanate 875-125 mg tablet 1 tab PO BID Qty: 10 0RF azithromycin 250 mg tablet See Rx Instructions PO .COMPLEX Qty: 6 0RF Rx Instructions: For 250 mg dose pack: take 500 mg today (day 1), then 250 mg for 4 days (days 2-5) prednisone 20 mg tablet 40 mg PO DAILY Qty: 10 0RF albuterol sulfate [ProAir HFA] 90 mcg/actuation HFA aerosol inhaler 2 puff inhalation Q4-6H PRN (Reason: bronchospasm) Qty: 8.5 0RF Print Language: Emirati
[2024-10-15 08:30] LABS: MANUAL DIFF FLAG NO
[2024-10-15 08:32] LABS: Basophils Absolute Auto 0.1 X10*3/uL (0.0-0.2); Eosinophils Absolute Auto 0.9 X10*3/uL (0.0-0.4); Eosinophils Percent Auto 10.9 % (0-4); Hemoglobin 14.5 g/dl (14.0-18.0); Imm Gran Abs Auto 0.02 X10*3/uL (0.00-0.03); Imm Gran Pct Auto 0.2 % (0.0-0.4); Lymphocytes Absolute Auto 1.7 X10*3/uL (1.2-4.9); Lymphocytes Percent Auto 20.4 % (20-40); Mean Corpuscular Hemoglobin 28.7 pg (27.0-33.0); Mean Platelet Volume 8.7 fL (9.4-12.4); Monocytes Absolute Auto 0.6 X10*3/uL (0.1-1.2); Monocytes Percent Auto 6.9 % (2-11); Neutrophils Absolute Auto 5.1 x10*3/uL (2.0-8.3); Neutrophils Percent Auto 60.6 % (45-73); Platelet Count 250 X10*3/uL (160-400); Red Blood Count 5.06 X10*6/uL (4.60-5.80); Red Cell Distribution Width 14.4 % (11.0-16.0); White Blood Count 8.4 X10*3/uL (4.8-10.8)
[2024-10-15] MEDS: Piperacillin Sodium/Tazobactam 3.375 GM in 0.9 % Sodium Chloride 50 ML IV (08:36)
[2024-10-15] MEDS: Diphth,Pertus(ACell),Tet Adult 0.5 ML SYRINGE IM (08:37)
[2024-10-15 08:40] LABS: Prothrombin Time 11.8 SEC (10.9-12.4)
--- NOTE | 2024-10-15 08:45 | PC.NURSE ---
Pt is alert/oriented/ambulatory. Reports right hand splinter obtained 3 days ago on wooden hand rail. States unable to remove at home. Site red/swollen. +CMS with +radial pulse. Pt states pain 8/10. IV established, labs obtained and ABX infusing. Tetanus given to right deltoid.
[2024-10-15 08:47] LABS: Alanine Aminotransferase 28 U/L (0-40); Albumin Level 4.3 g/dL (3.5-5.0); Alkaline Phosphatase 78 U/L (39-117); Anion Gap 11 (12-20); Aspartate Amino Transferase 25 U/L (5-37); Bilirubin Direct 0.2 mg/dL (0.0-0.5); Bilirubin Total 0.7 mg/dL (0.0-1.0); Blood Urea Nitrogen 15 mg/dL (9-16); Calcium 10.3 mg/dL (8.4-10.2); Carbon Dioxide 25 mmol/L (22-29); Chloride 109 mmol/L (96-108); Creatinine Clr Calc Pharmacy 85.4; Estimated Glomerular Filt Rate > 60; Glucose Random 99 mg/dL (60-115); Lactic Acid 1.4 mmol/L (0.5-2.0); Magnesium 2.1 mg/dL (1.6-2.6); Potassium 3.7 mmol/L (3.3-5.1); Sodium 141 mmol/L (135-145); Total Protein 7.4 g/dL (6.5-8.0)
[2024-10-15] MEDS: vancomycin HCL 1,000 MG, vancomycin HCL 750 MG in 0.9 % Sodium Chloride 500 ML 267.5 MG IV (08:57)
--- NOTE | 2024-10-15 12:48 | PC.NURSE ---
Pt was requesting to leave AMA, staff advised that ortho was going to be right down, Pt then told staff time is ticking . Ortho in room, pt given options and pt chose to do outpt follow up. This RN brought in paperwork when pt advised he is actually going to stay. MD babb
--- NOTE | 2024-10-15 15:02 | PC.NURSE ---
Report given to Yasmin in [facility], plan for procedure later
--- NOTE | 2024-10-15 15:36 | MHC.SHP ---
Pre-Procedural Eval Section A - 24 Hr Update-Section A only Date of Service: 10/15/24 The patient is an INPATIENT: No Changes since office visit: Yes Cold of Flu in the past 2 weeks, Yes New Medical Problems, Yes Changes in Medication and Yes Patient answered all questions The patient has been examined within 24 hours of the surgical procedure. 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 Three days ago he says he got a big splinter in the palmar aspect of his right hand in the area of the 1st webspace when he started to fall down some stairs and grabbed onto the wooden railing. He says he took some of it out with his teeth but feels like there is still a piece of wood in there. Since then the volar aspect of the 1st webspace area has gotten swollen red and more painful. He denies having diabetes or taking any biologic medications. He says that he has had a stent placed in his lungs are bad O: The patient was alert oriented and in no acute distress when I saw him in preop hold. He has a small wound on the volar aspect of the 1st webspace, which represents the entrance wound and where he tried to take it out with a razor blade. He has redness swelling and tenderness over the volar aspect of the 1st webspace of his right hand. He can actively flex and extend his fingers and his thumb. He did not want to bring them all the way close to a fist. He says sensation is intact to the tips of his fingers. Plan I have reviewed the history and physical and performed a pertinent physical examination on my patient. No changes have occurred unless specified. Assessment and plan: 1. Right palmar foreign body with infection I educated the patient about this condition We discussed operative and non operative treatment options and I am recommending surgery. The patient wishes to proceed with surgery The risks and benefits of operative treatment were discussed with the patient and the patient wishes to proceed with surgery. These risks include, but are not limited to risk of damage to blood vessels, nerves, tendons, infection, recurrence, incomplete relief of preoperative symptoms, persistent pain, possible need for further surgery and the risks associated with regional blocks and anesthesia. The plan is to take the patient to the operating room today for the following procedures: 1. Right hand removal of foreign body 2. Right hand I&D under local All of the preoperative paperwork including the consent was filled out today. All the patient's questions were answered. Time Spent With Patient Time: Total time managing care of this patient today ____ minutes.
--- NOTE | 2024-10-15 15:41 | P.OP_ITS ---
Operative Note Operative Note Date of Service: 10/15/24 Narrative: Operative Note Preop diagnosis: 1. Right volar 1st webspace retained foreign body and infection Postop diagnosis: same Procedure: 1. Right volar 1st webspace removal of foreign body 2. Right volar 1st webspace I&D Surgeon: Lashae Macias MD Mobile Sales Expert: Ac MARINO Anesthesia: Local using 1% lidocaine with epinephrine Findings: We removed a 2.5 cm by 2-3 mm diameter piece of wood from the volar aspect of his right 1st webspace. We also encountered some creamy yellow purulence. EBL: Less than 5 mL Tourniquet time: None Specimens: Cultures of purulent material Complications: None Disposition: Brought to recovery room in stable condition Plan: Take Keflex and doxycycline as prescribed by the emergency department. He can remove his dressing in 3 days and then wash the wound in the shower sink, but no submerging the wound. Daily dressing changes. Follow-up for early next week for wound check and suture removal and to check microbiology Indications: The patient is 68 years old, with an infected foreign body in his right volar 1st webspace . The risks and benefits of operative treatment including but not limited to risk of damage to blood vessels, nerves, tendons, infection, persistent pain, persistent symptoms, recurrence or possible need for additional surgery were discussed with the patient and the patient wishes to proceed with surgery. Procedure: Once consent was obtained a digital block was performed in the preop area using a combination of 1% lidocaine with epinephrine. The patient was then brought back to the operating suite and placed on the operative table in supine position. A tourniquet was applied to the proximal aspect of the right upper extremity and the limb was prepped and draped in a standard surgical fashion. Once assured that we had a good block, I made a 2 cm incision in the volar aspect of his right 1st webspace extending from the entry wound roughly at the web, in the direction of the foreign body towards the palm. The incision was made through the skin to the subcutaneous tissues. I then carefully dissected down into the volar 1st webspace using tenotomy scissors. We identified the foreign body which was about 2.5 cm long by 2-3 mm in diameter and was a piece of wood. This was removed from the patient's hand and placed on the back table. We did encounter some creamy yellow purulence and took a culture of this. We then copiously irrigated the wound with normal saline. Once satisfied with our foreign body removal and I and D of the right hand the wound was copiously irrigated with normal saline and hemostasis was obtained with a brief period of local pressure. The skin edges were loosely reapproximated with a single 5.0 nylon suture and a sterile dressing was applied. The patient appears to have tolerated the procedure well and with no complications. All digits were well vascularized at the conclusion of the case.
== END 2024-10-15 16:59 | disposition home or self-care (01) ==
LOC: HO.ED 15:20 → HO.SSS 15:21
PROVIDERS: Orthopaedic Surgery; Emergency Provider Emergency Medicine; PCP Internal Medicine; Visit Provider Emergency Medicine
PROC: (CPT 10120; principal; 2024-10-15 15:00)
DX: S61.441A Puncture wound with foreign body of right hand, initial encounter (principal); W45.8XXA Other foreign body or object entering through skin, initial encounter; L03.113 Cellulitis of right upper limb; M79.641 Pain in right hand; Z23 Encounter for immunization; J44.9 Chronic obstructive pulmonary disease, unspecified; Y93.89 Activity, other specified; Y92.9 Unspecified place or not applicable; Y99.9 Unspecified external cause status; Z79.899 Other long term (current) drug therapy
CPT/HCPCS: 10120; 36415; 73130; 80048; 80076; 83605; 83735; 85025; 85610; 87040; 87070; 87205; 90471; 90715; 96365; 96366; 96367; 99284; 99285; J2543; J3370

== ENCOUNTER → 2024-10-15 07:21 | Outpatient (BNV) | payer OTHER, SELFPAY | PROVIDERS: Emergency Provider Emergency Medicine; PCP Internal Medicine; Visit Provider Radiology Diagnostic Radiology | DX: S61.431A Puncture wound without foreign body of right hand, initial encounter (principal) | CPT/HCPCS: 73130 ==

== ENCOUNTER → 2024-10-15 15:18 | Outpatient (BNV) | payer OTHER, SELFPAY | PROVIDERS: Emergency Provider Emergency Medicine; PCP Internal Medicine; Visit Provider Orthopaedic Surgery | DX: S60.551A Superficial foreign body of right hand, initial encounter (principal) | CPT/HCPCS: 10120 ==

== ENCOUNTER 2024-10-20 13:50 | Outpatient (AMB) | payer OTHER, SELFPAY ==
--- NOTE | 2024-10-20 14:10 | A.OFFVIS_ITS ---
Vital Signs 10/20/24 14:16 Height 5 ft 7 in Weight 145 lb BMI 22.7 Intake Visit Reasons: PO s/p I & D of splinter of rt hand - AR 10/15/24 Intake Note: Ivan a 68 year old male who presents today for a post operative visit s/p right hand I&D, DOS: 10/15/24. Patient reports he is doing well, states his pain has subsided. He has no concerns today. Allergies No Known Allergies Allergy (Verified 10/20/24 14:14) HPI HPI PO s/p I & D of splinter of rt hand - AR 10/15/24: Details: 68-year-old male who returns to the office today for post-op right hand I&D, 10/15/[address] Macias. He states his pain has subsided and he is doing well overall. He has no concerns today. [facility] Medical History (Updated 10/15/24 @ 08:34 by Ayana Koo DO) COPD (chronic obstructive pulmonary disease) Surgical History H/O repair of rotator cuff H/O left knee surgery Social History Alcohol intake: never Patient Tobacco Use Status: Never used Tobacco Current occupational status: retired Current occupation: right hand dominant Review of Systems Const All systems reviewed & are unremarkable except as noted in HPI and below Physical Exam Vital Signs: BMI result Body Mass Index 22.7 Extrem Other: Right hand: Incision clean, dry and intact. No redness or drainage. No swelling, no tenderness to palpation around the thenar eminence. He can extend all digits and is able to make a closed fist. NVI. Assessment & Plan Assessment & Plan (1) Foreign body hand-infection: Code(s): S60.559A - Superficial foreign body of unspecified hand, initial encounter; L08.9 - Local infection of the skin and subcutaneous tissue, unspecified Category: Medical Qualifiers: Encounter type: initial encounter Laterality: right Qualified Code(s): S60.551A - Superficial foreign body of right hand, initial encounter; L08.9 - Local infection of the skin and subcutaneous tissue, unspecified Plan Sutures were removed today. He will continue with antibiotics until he has completed the course. He can wash the area with soap and water and the pat dry. He can increase activities as tolerated. If he has any type of redness, pain or drainage, he will contact the office, otherwise follow-up as needed. Patient Instructions: Scribed for Alex Gimenez PA-C, by Abdoul Carty medical doctor md/medical director, on 10/20/2024 at 2:00 PM EST.? I, Alex Gimenez PA-C, have personally reviewed and agree with the information entered by the scribe. Coding Level of Care Code Global (00432) Diagnoses Foreign body hand-infection S60.551A; L08.9 Encounter type: initial encounter Laterality: right
[2024-10-20 14:16] VITALS: BMI 22.7
== END 2024-10-20 14:54 | disposition home or self-care (01) ==
PROVIDERS: PCP Internal Medicine; Visit Provider Physician Assistant
DX: S60.551A Superficial foreign body of right hand, initial encounter (principal); L08.9 Local infection of the skin and subcutaneous tissue, unspecified
CPT/HCPCS: 99024

== ENCOUNTER → 2024-10-20 13:50 | Outpatient (BNVA) | payer OTHER, SELFPAY | PROVIDERS: PCP Internal Medicine; Visit Provider Physician Assistant | DX: S60.551A Superficial foreign body of right hand, initial encounter (principal); L08.9 Local infection of the skin and subcutaneous tissue, unspecified; X58.XXXA Exposure to other specified factors, initial encounter; Y93.9 Activity, unspecified; Y92.9 Unspecified place or not applicable; Y99.9 Unspecified external cause status | CPT/HCPCS: 99212 ==

== ENCOUNTER 2025-05-20 22:25 | Emergency (ER) | payer OTHER, SELFPAY ==
--- NOTE | ~2025-05-20 | CT_ITS ---
CLINICAL HISTORY: Dysphagia, Voice Changes CT Neck Soft Tissue W Contrast COMPARISON: None provided FINDINGS: Hypoenhancing soft tissue in the supraglottic larynx measuring approximately 3.9 x 1.4 x 2.3 cm (for example series 2, image 86 and series 7, image 52). There is effacement of the bilateral piriform sinuses. Effacement of the supraglottic airway. Unremarkable tonsils. Normal thyroid. Clear visualized sinuses. Clear bilateral mastoid air cells. Unremarkable orbits. Unremarkable bilateral parotid and submandibular glands. No pathologically enlarged lymph nodes. No retropharyngeal edema or abscess. No acute fracture. Degenerative changes in the spine. Centrilobular and paraseptal emphysematous changes in the upper lungs. IMPRESSION: Soft tissue lesion in the supraglottic larynx effacing the airway and the bilateral piriform sinuses suspicious for malignancy. An infectious or inflammatory process could also potentially have this appearance. Consider enhanced MRI or PET scan if not worked up in the past. This document has been electronically signed by: Wilfred Vincent MD on 05/21/2025 02:30:43
[2025-05-20 22:32] VITALS: BP 120/84; TEMP 36.5; O2SAT 97; BMI 22.4
--- NOTE | 2025-05-20 23:17 | ED.GENADULT ---
HPI - General Adult General Chief complaint: Skin/Abscess/Foreign Body Stated complaint: burned throat,hard to breathe or swallow Time Seen by Provider: 05/20/25 23:03 Source: patient Mode of arrival: ambulatory Limitations: no limitations History of Present Illness ED Provider: Bacilio MARINO HPI narrative: The patient is a 69-year-old male with history of COPD, DJD, and depression presenting to the ED for evaluation of dysphagia with difficulty managing his secretions. The patient reports at 16:00 today he microwave the potato, attempted to either bite of mass potatoes and noted to be extremely hot, instead of spitting it out the patient swallowed the hot potato. Patient reports he experienced a burning sensation and pain after swallowing the hot food, however patient was able to finish eating his entire meal without difficulty. The patient reports he ran some errands during which time he noted continued pain in his throat but denied any difficulty managing secretions or breathing. The patient reports upon returning home he began developing changes in his voice noted by his significant other, and subsequently developed difficulty managing his secretions while laying flat but denies difficulty managing secretions while sitting up. The patient reports symptoms worsened and he attempted to take a tablet of oxycodone he had left over from recent dental work (3 weeks ago). Patient reports he was unable to swallow the pill or water thus prompting ED evaluation. The patient denies associated fever/chills, trismus, foreign body sensation, shortness of breath, high pitched breathing, or chest pain. Related Data Home Medications ?Medication ?Instructions ?Recorded ?Confirmed fluticasone propionate 230 2 puff inhalation BID 10/15/24 10/15/24 mcg-salmeterol 21 mcg/actuation HFA inhaler (Advair HFA) tiotropium bromide 2.5 2 puff inhalation DAILY 10/15/24 10/15/24 mcg/actuation mist for inhalation (Spiriva Respimat) Previous Rx's ?Medication ?Instructions ?Recorded cyclobenzaprine 10 mg tablet 10 mg PO TID PRN muscle spasm #10 10/12/20 tabs naproxen 500 mg tablet 500 mg PO BID PRN pain #10 tabs 10/12/20 cyclobenzaprine 5 mg tablet 5 mg PO Q8H PRN pain (scale score 11/12/21 7-10) 5 days #14 tabs lidocaine 5 % topical patch 1 patch topical DAILY PRN pain #30 11/12/21 (Lidoderm) ea acetaminophen 500 mg capsule 1,000 mg (2 x 500 mg) PO Q8H PRN 01/09/23 pain #30 caps albuterol sulfate 90 mcg/actuation 2 puff inhalation Q4-6H PRN 03/13/23 aerosol inhaler (ProAir HFA) bronchospasm #8.5 grams prednisone 20 mg tablet 60 mg (3 x 20 mg) PO DAILY 5 days 05/21/25 #15 tabs Allergies Allergy/AdvReac Type Severity Reaction Status Date / Time No Known Allergies Allergy Verified 05/20/25 22:39 Review of Systems Review of Systems: Yes all other systems are reviewed and are negative [facility] Past Medical History Medical History (Updated 05/21/25 @ 03:32 by Bacilio Ambrosio PA-C) COPD (chronic obstructive pulmonary disease) Surgical History H/O repair of rotator cuff H/O left knee surgery Social History Social History Alcohol intake: former Patient Tobacco Use Status: Never used Tobacco Smoked in Last 30 Days: No Use of substances other than those prescribed or required for medical reasons: No Advance Directives: No Do you have a plan to hurt others: No Plan Current occupational status: retired Current occupation: right hand dominant Physical Exam ED Vital Signs: Vital Signs - 24 hr 05/20/25 22:32 05/21/25 02:17 05/21/25 03:12 Temperature 97.7 F 97.2 F Pulse Rate 66 Respiratory Rate 14 Blood Pressure 120/84 137/85 Pulse Oximetry 97 94 94 Oxygen Delivery Method Room Air Room Air Room Air BMI result Body Mass Index 22.4 CONSTITUTIONAL: The patient appears non-toxic, well nourished and in no acute distress. Vital signs as documented. HEAD: Atraumatic, normocephalic. EYES: EOMs grossly intact, pupils equal, conjunctiva clear, no exudate. ENT: Nares patent, no discharge. Patient has congested-sounding/gurgling speech, however airway is patent, no audible stridor, visible mucosa is pink and moist without noted lesions. Posterior pharynx shows a midline and nonedematous uvula, no tonsillar or peritonsillar swelling, no exudate, no trismus. No visible foreign body or pooling secretions. NECK: Trachea is midline, no obvious masses or gross abnormalities. CHEST: Symmetric movement, normal appearance. LUNGS: LS present and CTAB, no w/r/r. Non-labored work of breathing. CARDIAC: Regular Rhythm, S1/S2 appreciated, no murmurs, rubs or gallops. ABDOMEN: Abdomen soft and non-tender x4 quadrants, no palpable masses or organomegaly. : Deferred. EXTREMITIES: Normal tone, moves all extremities spontaneously without reported pain. No obvious acute injury or deformity noted. NEURO: Alert and oriented x3, CN II-XII appear grossly intact. Cerebellar Functioning grossly intact. No obvious sensory or motor deficits. Speech clear and appropriate. PSYCH: normal affect, appropriate eye contact, fluid speech, with appropriate response to questioning. No reported suicidality or homicidality. SKIN: Warm, dry, color appropriate, normal turgor. No rashes noted. Medications Administered Discontinued Medications Generic Name Dose Route Start Last Admin Trade Name Freq PRN Reason Stop Dose Admin Al Hydroxide/Mg Hydroxide 30 ml 05/20/25 23:28 05/20/25 23:43 Magnesium Hydrox/Alum Hydrox 30 Ml Oral.Susp PO 05/20/25 23:29 30 ml ONCE ONE Administration Dexamethasone Sodium Phosphate 10 mg 05/20/25 23:28 05/20/25 23:43 Dexamethasone Sod Phosphate 10 Mg/Ml Vial IVPUSH 05/20/25 23:29 10 mg ONCE ONE Administration Iohexol 75 ml 05/21/25 00:36 05/21/25 00:36 Iohexol 350 Mg/Ml 100 Ml Infus..Btl IV 05/21/25 00:37 75 ml ONCE ONE Administration Lidocaine HCl 15 ml 05/20/25 23:28 05/20/25 23:43 Lidocaine Hcl Viscous 2 % 15 Ml Solution PO 05/20/25 23:29 15 ml ONCE ONE Administration Medical Decision Making Medical Decision Making [facility] Narrative: 11:23 PM 05/20/2025: Patient is a 69-year-old male presenting to the ED for difficulty managing secretions and dysphagia with voice changes which began approximately 6-7 hours after eating hot potato at home. In the ED patient exam reveals obvious gurgling voice changes but no trismus, no posterior pharyngeal edema, there is no appreciated stridor, and no adventitious lung sounds. Patient appears in no acute respiratory distress, however due to the patient's obvious voice changes and dysphagia, we will obtain CT soft tissue of the neck with contrast to evaluate for edematous process. 2:41 AM 05/21/2025: Patient's CT soft tissue neck shows a soft tissue lesion in the supraglottic larynx effacing the airway suspicious for malignancy, infectious, or inflammatory process. Given the patient's history and sudden onset of symptoms, inflammatory process most likely. Due to the effacement of the patient's airway, he is high risk for airway compromise. We will attempt p.o. fluid challenge, if unsuccessful patient will be admitted for observation, if patient can successfully swallow p.o. fluids we will consider discharge with course of steroids and strict return precautions. 3:25 AM 05/21/2025: The patient successfully completed his p.o. challenge without any reported difficulty swallowing. Patient's voice is notably improved following Decadron. We will discharge the patient with a 5 day prednisone burst. Patient has been educated at length of the need for immediate return to the emergency department with any worsening breathing, high-pitched breathing, or recurrent inability to swallow fluids or soft solids . Patient states his understanding of indications to return. Admission/Observation Consideration of admission/observation: Escalation of care including admission/observation considered Lab Data MDM Lab Attestation statement: I reviewed the patient's lab results. 05/20/25 23:29 05/20/25 23:29 Labs: Lab Results 05/20/25 Range/Units 23:29 WBC 12.8 H (4.8-10.8) X10*3/uL RBC 4.69 (4.60-5.80) X10*6/uL Hgb 13.6 L (14.0-18.0) g/dl Hct 39.4 L (42.0-52.0) % MCV 84.0 (80.0-98.0) fL MCH 29.0 (27.0-33.0) pg MCHC 34.5 (31.0-36.0) g/dl RDW 14.1 (11.0-16.0) % Plt Count 236 (160-400) X10*3/uL MPV 8.9 L (9.4-12.4) fL Immature Gran % (Auto) 0.2 (0.0-0.4) % Neut % (Auto) 69.1 (45-73) % Lymph % (Auto) 12.2 L (20-40) % [place] % (Auto) 6.3 (2-11) % Eos % (Auto) 11.5 H (0-4) % Baso % (Auto) 0.7 (0-2) % Lymph # (Auto) 1.6 (1.2-4.9) X10*3/uL [place] # (Auto) 0.8 (0.1-1.2) X10*3/uL Eos # (Auto) 1.5 H (0.0-0.4) X10*3/uL Baso # (Auto) 0.1 (0.0-0.2) X10*3/uL Abs Immat Gran (auto) 0.02 (0.00-0.03) X10*3/uL Absolute Neuts (auto) 8.9 H (2.0-8.3) x10*3/uL Absolute Nucleated RBC 0.000 (0.0-0.012) X10*3/uL Nucleated RBC % (auto) 0.0 (0.0-0.2) /100WBC Sodium 141 (135-145) mmol/L Potassium 3.7 (3.3-5.1) mmol/L Chloride 111 H (96-108) mmol/L Carbon Dioxide 23 (22-29) mmol/L Anion Gap 11 L (12-20) BUN 20 H (9-16) mg/dL Creatinine 0.90 (0.5-1.4) mg/dL Estim Creat Clear Calc 72.0 Estimated GFR > 60 Random Glucose 104 (60-115) mg/dL Calcium 9.0 D (8.4-10.2) mg/dL Total Bilirubin 0.9 (0.0-1.0) mg/dL AST 32 (5-37) U/L ALT 24 (0-40) U/L Alkaline Phosphatase 63 (39-117) U/L Total Protein 6.6 (6.5-8.0) g/dL Albumin 4.2 (3.5-5.0) g/dL Radiology Impression Discussion of test interpretation with radiology: I discussed test interpretation with the radiologist and I have reviewed the radiologist's reading. Radiologist Impression: CLINICAL HISTORY: Dysphagia, Voice Changes CT Neck Soft Tissue W Contrast COMPARISON: None provided FINDINGS: Hypoenhancing soft tissue in the supraglottic larynx measuring approximately 3.9 x 1.4 x 2.3 cm (for example series 2, image 86 and series 7, image 52). There is effacement of the bilateral piriform sinuses. Effacement of the supraglottic airway. Unremarkable tonsils. Normal thyroid. Clear visualized sinuses. Clear bilateral mastoid air cells. Unremarkable orbits. Unremarkable bilateral parotid and submandibular glands. No pathologically enlarged lymph nodes. No retropharyngeal edema or abscess. No acute fracture. Degenerative changes in the spine. Centrilobular and paraseptal emphysematous changes in the upper lungs. IMPRESSION: Soft tissue lesion in the supraglottic larynx effacing the airway and the bilateral piriform sinuses suspicious for malignancy. An infectious or inflammatory process could also potentially have this appearance. Consider enhanced MRI or PET scan if not worked up in the past. This document has been electronically signed by: Wilfred Vincent MD on 05/21/2025 02:30:43 Discharge Plan Discharge Clinical Impression: Esophagus burn Patient Disposition: Home, Self-Care Instructions: Esophageal Foreign Body (ED), Reactive Airways Disease (ED), Upper Endoscopy (DC) Additional Instructions: Thank you for choosing [facility] Emergency Department for your care today. Your hot food ingested earlier today appears to have caused thermal burn/injury with subsequent swelling of your esophagus. Your CT shows the swelling is pressing upon your airway just beneath your vocal cords which is causing your altered voice and difficulty swallowing. At this time, following IV steroid therapy in the emergency department, you were able to successfully swallow fluids. As such we are able to safely discharge you home. Please take prednisone as prescribed until finished. It is extremely important that you return immediately to the emergency department if you develop any difficulty breathing, high pitched/noisy breathing, recurrent inability to swallow fluids or soft solids, inability to swallow pills, or any evidence of worsening symptoms. You must avoid eating any hot or solid foods until complete resolution of your symptoms. Failure to avoid these foods could result in worsening of your swelling and occlusion of your airway, preventing you from being able to breathe. You may take alternating (staggered) doses of ibuprofen 600mg and Tylenol 1000mg every 4 hours as needed for any additional pain. Please stay well hydrated and get plenty of rest. Please follow up with your primary care physician for re-evaluation, additional management of your symptoms, and continued preventative care. If you do not have a primary care physician, please call the [facility] at [phone] to establish a new primary care physician. While waiting to establish your new primary care physician, you can call our Walk[facility] at [phone] for non-emergency needs. Please return to the emergency department if you develop a severe or sudden change in your symptoms, a fever over 100.4 that does not improve with Tylenol or Ibuprofen, recurrent vomiting, or any other new or worsening symptoms or concerns. Prescriptions: New prednisone 20 mg tablet 60 mg PO DAILY 5 Days Qty: 15 0RF No Action naproxen 500 mg tablet 500 mg PO BID PRN (Reason: pain) Qty: 10 0RF cyclobenzaprine 10 mg tablet 10 mg PO TID PRN (Reason: muscle spasm) Qty: 10 0RF lidocaine [Lidoderm] 5 % adhesive patch,medicated 1 patch topical DAILY MDD remove after 12 hours PRN (Reason: pain) Qty: 30 0RF Rx Instructions: leave on most painful area for up to 12 hrs cyclobenzaprine 5 mg tablet 5 mg PO Q8H PRN (Reason: pain (scale score 7-10)) 5 Days Qty: 14 0RF acetaminophen 500 mg capsule 1,000 mg PO Q8H PRN (Reason: pain) Qty: 30 0RF albuterol sulfate [ProAir HFA] 90 mcg/actuation HFA aerosol inhaler 2 puff inhalation Q4-6H PRN (Reason: bronchospasm) Qty: 8.5 0RF fluticasone propion-salmeterol [Advair HFA] 230-21 mcg/actuation HFA aerosol inhaler 2 puff inhalation BID Spiriva Respimat 2.5 mcg/actuation mist 2 puff inhalation DAILY Referrals: Arben Giordano III, MD [Primary Care Provider, Medical] Clinical Impression: Esophagus burn Print Language: Brazilian
[2025-05-20 23:38] LABS: MANUAL DIFF FLAG NO
[2025-05-20 23:39] LABS: Basophils Absolute Auto 0.1 X10*3/uL (0.0-0.2); Basophils Percent Auto 0.7 % (0-2); Eosinophils Absolute Auto 1.5 X10*3/uL (0.0-0.4); Eosinophils Percent Auto 11.5 % (0-4); Hematocrit 39.4 % (42.0-52.0); Hemoglobin 13.6 g/dl (14.0-18.0); Imm Gran Abs Auto 0.02 X10*3/uL (0.00-0.03); Imm Gran Pct Auto 0.2 % (0.0-0.4); Lymphocytes Absolute Auto 1.6 X10*3/uL (1.2-4.9); Lymphocytes Percent Auto 12.2 % (20-40); Mean Corpuscular HGB Conc 34.5 g/dl (31.0-36.0); Mean Platelet Volume 8.9 fL (9.4-12.4); Monocytes Absolute Auto 0.8 X10*3/uL (0.1-1.2); Monocytes Percent Auto 6.3 % (2-11); Neutrophils Absolute Auto 8.9 x10*3/uL (2.0-8.3); Neutrophils Percent Auto 69.1 % (45-73); Platelet Count 236 X10*3/uL (160-400); Red Blood Count 4.69 X10*6/uL (4.60-5.80); Red Cell Distribution Width 14.1 % (11.0-16.0); White Blood Count 12.8 X10*3/uL (4.8-10.8)
[2025-05-20] MEDS: Lidocaine HCl Viscous 2 % 15 ML SOLUTION PO (23:43)
[2025-05-20] MEDS: dexAMETHasone sod phosphate 10 MG/ML VIAL IVPUSH (23:43)
[2025-05-20] MEDS: Magnesium Hydrox/Alum Hydrox 30 ML ORAL.SUSP PO (23:43)
[2025-05-21 00:01] LABS: Alanine Aminotransferase 24 U/L (0-40); Albumin Level 4.2 g/dL (3.5-5.0); Alkaline Phosphatase 63 U/L (39-117); Anion Gap 11 (12-20); Aspartate Amino Transferase 32 U/L (5-37); Bilirubin Total 0.9 mg/dL (0.0-1.0); Blood Urea Nitrogen 20 mg/dL (9-16); Carbon Dioxide 23 mmol/L (22-29); Chloride 111 mmol/L (96-108); Estimated Glomerular Filt Rate > 60; Glucose Random 104 mg/dL (60-115); Potassium 3.7 mmol/L (3.3-5.1); Sodium 141 mmol/L (135-145); Total Protein 6.6 g/dL (6.5-8.0)
[2025-05-21] MEDS: iohexoL 350 MG/ML 100 ML INFUS..BTL 75 ML IV (00:36)
[2025-05-21 02:17] VITALS: BP 137/85; PULSE 66; RESP 14; TEMP 36.2; O2SAT 94
[2025-05-21 03:12] VITALS: O2SAT 94
[2025-05-21 03:48] VITALS: BP 137/85; PULSE 66; RESP 14; TEMP 36.2; O2SAT 94
== END 2025-05-21 03:49 | disposition home or self-care (01) ==
PROVIDERS: Physician Assistant; Emergency Provider Emergency Medicine; PCP Internal Medicine
DX: T28.1XXA Burn of esophagus, initial encounter (principal); M54.2 Cervicalgia; X10.1XXA Contact with hot food, initial encounter; Y93.9 Activity, unspecified; Y92.9 Unspecified place or not applicable; Y99.8 Other external cause status; Z79.899 Other long term (current) drug therapy
CPT/HCPCS: 36415; 70491; 80053; 85025; 99284; J1100; Q9967

== ENCOUNTER → 2025-05-21 | Outpatient (BNV) | payer OTHER, SELFPAY | PROVIDERS: Emergency Provider Emergency Medicine; PCP Internal Medicine; Visit Provider Radiology Diagnostic Radiology | DX: J38.7 Other diseases of larynx (principal) | CPT/HCPCS: 70491 ==